=== PATIENT | male | born 1935 | race Caucasian/White ===

== ENCOUNTER 2024-12-12 09:42 | Outpatient (OUT) | payer OTHER, SELFPAY ==
--- OUTSIDE RECORDS SUMMARY | 2023-06-25 07:00 | XMS_ITS ---
Author Organization [facility] Address [address] [address] Care Team Providers Care Activity Manager Name Role Phone Gregg Lopez Primary Care Provider Wilmar Thibodeaux Unavailable [phone] ALLERGIES Allergen (clinical drug ingredient) Drug/Non Drug Allergy documented on EMR Reaction Allergy Type Onset Date Status atorvastatin Lipitor Unknown Drug Allergy Acti ve fenofibrate Tricor Unknown Drug Allergy Activ e REASON FOR VISIT IOV 03/18/08 DUST COLLECTOR OPERATOR 1.5 EGFR 49.5 XIN 06/26/22 CRT1.2 EGFR 55, recent covid,,tired MEDICATIONS Medication SIG (Take, Route, Frequency, Duration) Notes Start Date End Date Status Levothyroxine Sodium 100 MCG 1 tablet on an empty stomach in the morning Orally Once a day for 30 day(s) Active Omeprazole 40 MG 1 capsule 30 minutes before morning meal Orally Once a day Active Nitroglycerin 0.4 MG 1 tablet under the tongue and allow to dissolve as needed Sublingual every 0 hrs Active Lipitor 80 MG 1 tablet Orally Once a day Active Xarelto 20 MG 1 tablet with food Orally Once a day Active Lisinopril 10 MG 1 tablet Orally Once a day Active Ipratropium [place] 0.06 % 2 sprays in e ach nostril Nasally Three times a day for 4 day(s) Active Finasteride 5 MG 1 tablet Orally Once a day for 30 day(s) Active Flax Seed Oil 1300 MG 1 capsule Orally T wice a day Active Doxycycline Hyclate 100 MG 1 capsule Ora lly Once a day for 10 day(s) Active Allopurinol 300 MG 0.5 tablet Orally On ce a day Active Nebivolol HCl 5 MG 1 tablet Orally Once a day for 30 day(s) Active CoQ10 200 MG 1 capsule with a rio l Orally Once a day for 30 day(s) Active Aspirin 81 MG 1 tablet Orally Once a Day Active SOCIAL HISTORY Tobacco Use: Social History Observation Description Date Details (start date - stop date) Never Smoker NA - NA Sex Assigned At : Social History Observation Description Sex Assigned At Unknown Are you a smoker Question Answer Notes Patient is a nonsmoker Additional Findings: Tobacco Non-User Aggressive non-smoker Alcohol Screen Question Answer Notes Did you have a drink contain ing alcohol in the past year? Yes How often did you have a dri nk containing alcohol in the past year? Monthly or less (1 point) How many drinks did you have on a typical day when you were drinking in the past year? 1 or 2 drinks (0 point) Points 1 Interpretation Negative VITAL SIGNS Blood pressure systolic 110 mm Hg 06/25/19 24 Blood pressure diastolic 56 mm Hg 024 Heart Rate 75 /min 06/25/2023 Height 70 in 06/25/2023 Weight 178 lbs 06/25/2023 BMI 25.54 kg/m2 06/25/2023 Encounters Encounter Location Date Provider Diagnosis [facility] [address] [facility] [address] [place] [address] 06/25/2023 Wilmar Rubio Chronic kidney dis ease, stage 3a N18.31 and Hypertensive 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 4 chronic kidney disease, or unspecified chronic kidney disease I12.9 ASSESSMENTS Encounter Date Diagnosis Assessment Notes Treatment Notes Treatment Clinical Notes Section Notes 06/25/2023 Chronic kidney disease, stage 3a (ICD-10 - N18.31) LOW K DIET 1 YEAR FU THYROID MEDS MAY NEED ADJUSTEMENTS DUST COLLECTOR OPERATOR/EGFR/PROTEIN 1.2/54.8/0.0 NA 139 K 5.1 CHL 109 CO2 26 GLUC 84 CANDIDO 8.7 ALB 3.7 PO4 3.6 HGB 10.8 HCT 33.0 TSH 0.05 PTHI 40 MAURO D 57.4 RENAL U/S 06/11/19 R 11.5 L 8.9 CKD 3 A A1 CGN WITH POSSIBLE arvd.no SIGNIFICANT progression, Clinical assessment of today visit revealed; PATIENT SEEN AND EXAMINED LABS AND MEDICATIONS REVIEWED THE FOLLOWING IS OF SIGNIFICANCE FOR TODAY''S VISIT: PATIENT DOESN''T PRESENT WITH ANY COMPLAINTS OR CONCERNS STABLE GFR NO CLINICAL EVIDENCE OF ECFV BLOOD PRESSURE CONTROLLED NO MAJOR ELECTROLYTE OR ACID BASE IMBALANCE K 5.1 NO CLINICALLY SIGNIFICANT PROTEINURIA NO SIGNIFICANT ANEMIA REQUIRING FURTHER WORK UP NO SIGNIFICANT EVIDENCE OF METABOLIC BONE DISORDER SUCH HYPERPHOSPHATEMIA OR HYPERPARATHYROIDISM THE ABOVE DISCUSSED WITH THE PATIENT IN ADDITION TO AVOID ANY NEPHROTOXIC EXPOSURE SUCH CONTRAST DYE, NSAIDS. AVOID FALLING OR BONE BREAKS AVOID PNEMONIA BY BEING UPDATED IN VACCINES CONTACT THE OFFICE WITH ANY CHANGE IN CONDITION OR MEDICATIONS 06/25/2023 Hypertensive 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 4 chronic kidney disease, or unspecified chronic kidney disease (ICD-10 - I12.9) DUST COLLECTOR OPERATOR/EGFR/PROTEIN 1.2/54.8/0.0 NA 139 K 5.1 CHL 109 CO2 26 GLUC 84 CANDIDO 8.7 ALB 3.7 PO4 3.6 HGB 10.8 HCT 33.0 TSH 0.05 PTHI 40 MAURO D 57.4 RENAL U/S 06/11/19 R 11.5 L 8.9 CKD 3 A A1 CGN WITH POSSIBLE arvd.no SIGNIFICANT progression, Clinical assessment of today visit revealed; PATIENT SEEN AND EXAMINED LABS AND MEDICATIONS REVIEWED THE FOLLOWING IS OF SIGNIFICANCE FOR TODAY''S VISIT: PATIENT DOESN''T PRESENT WITH ANY COMPLAINTS OR CONCERNS STABLE GFR NO CLINICAL EVIDENCE OF ECFV BLOOD PRESSURE CONTROLLED NO MAJOR ELECTROLYTE OR ACID BASE IMBALANCE K 5.1 NO CLINICALLY SIGNIFICANT PROTEINURIA NO SIGNIFICANT ANEMIA REQUIRING FURTHER WORK UP NO SIGNIFICANT EVIDENCE OF METABOLIC BONE DISORDER SUCH HYPERPHOSPHATEMIA OR HYPERPARATHYROIDISM THE ABOVE DISCUSSED WITH THE PATIENT IN ADDITION TO AVOID ANY NEPHROTOXIC EXPOSURE SUCH CONTRAST DYE, NSAIDS. AVOID FALLING OR BONE BREAKS AVOID PNEMONIA BY BEING UPDATED IN VACCINES CONTACT THE OFFICE WITH ANY CHANGE IN CONDITION OR MEDICATIONS PLAN OF TREATMENT Treatment Notes Assessment Notes Chronic kidney disease, stage 3a LOW K DIET 1 YEAR FU THYROID MEDS MAY NEED ADJUSTEMENTS Next Appt Details Follow Up: 1 Year, Reason: Provider Name:Wilmar Rubio, 1 06/17/2024 01:00:00 PM, [address], [address], [place], [address], Progress Notes * Examination Category Sub-Category Detail Notes Category Not es General Examination GENERAL APPEARANCE: No distr ess, alert and oriented x 3 NECK/THYROID: no carotid bruit, no jugular venous distention HEART: normal, no rubs, no S3, S1, S2 normal LUNGS: clear anteriorly and posteriorly ABDOMEN: soft, nontender, non distended NEUROLOGIC: alert and oriented, nonfocal, no asterixis SKIN: normal, no rashes, w arm and dry EXTREMITIES: no clubbing, cyanosi s, or edema. No active synovitis BACK: no pain over spinous processes, no CVA tenderness
--- OUTSIDE RECORDS SUMMARY | 2024-06-30 07:30 | XMS_ITS ---
Author Organization [facility] Address [address] [address] Care Team Providers Care Consulting Application Engineer Name Role Phone Gregg Lopez Primary Care Provider Wilmar Thibodeaux Unavailable [phone] ALLERGIES Allergen (clinical drug ingredient) Drug/Non Drug Allergy documented on EMR Reaction Allergy Type Onset Date Status atorvastatin Lipitor Unknown Drug Allergy Acti ve fenofibrate Tricor Unknown Drug Allergy Activ e REASON FOR VISIT IOV 03/18/08 AIRCRAFT ACCESSORIES MECHANIC 1.5EGFR 49.5 XIN 06/25/23 AIRCRAFT ACCESSORIES MECHANIC 1.2 EGFR 54.8, states no med changes no list, c/o being tired MEDICATIONS Medication SIG (Take, Route, Frequency, Duration) Notes Start Date End Date Status Lisinopril 10 MG 1 tablet Orally Once a day Active Nebivolol HCl 5 MG 1 tablet Orally Once a day for 30 day(s) Active Nitroglycerin 0.4 MG 1 tablet under the tongue and allow to dissolve as needed Sublingual every 0 hrs Active Omeprazole 40 MG 1 capsule 30 minutes before morning meal Orally Once a day Active Xarelto 20 MG 1 tablet with food Orally Once a day Active Finasteride 5 MG 1 tablet Orally Once a day for 30 day(s) Active Flax Seed Oil 1300 MG 1 capsule Orally T wice a day Active Ipratropium [place] 0.06 % 2 sprays in e ach nostril Nasally Three times a day for 4 day(s) Active Levothyroxine Sodium 100 MCG 1 tablet on an empty stomach in the morning Orally Once a day for 30 day(s) Active Lipitor 80 MG 1 tablet Orally Once a day Active Allopurinol 300 MG 0.5 tablet Orally On ce a day Active Aspirin 81 MG 1 tablet Orally Once a Day Active CoQ10 200 MG 1 capsule with a rio l Orally Once a day for 30 day(s) Active Doxycycline Hyclate 100 MG 1 capsule Ora lly Once a day for 10 day(s) Active SOCIAL HISTORY Tobacco Use: Social History [...] Interpretation Negative VITAL SIGNS Blood pressure systolic 102 mm Hg 06/30/19 25 Blood pressure diastolic 54 mm Hg 025 Heart Rate 72 /min 06/30/2024 Height 70 in 06/30/2024 Weight 176 lbs 06/30/2024 BMI 25.25 kg/m2 06/30/2024 Encounters Encounter Location Date Provider Diagnosis [facility] [address] [facility] [address] [place] [address] 06/30/2024 Wilmar Rubio Chronic kidney dis ease, stage 3a N18.31 and Hypertensive 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 4 chronic kidney disease, or unspecified chronic kidney disease I12.9 ASSESSMENTS Encounter Date Diagnosis Assessment Notes Treatment Notes Treatment Clinical Notes Section Notes 06/30/2024 Chronic kidney disease, stage 3a (ICD-10 - N18.31) DISCUSSED K WITH LOW K DIET AND NO TO VALENTIN ORO FOR BLOOD DRAW KEEP LISINOPRIL AND SEE PATIENT IN 3 MO AIRCRAFT ACCESSORIES MECHANIC/EGFR/PROTIEN 1.3/53/0.0 NA 139 K 5.2 C02 23 GLUC 96 CA 8.7 ALB 3.8 P04 3.5 HGB 12.0 HCT 36.7 TSH 1.03 MAURO D 50.9 PTH 47 RENAL U/S 06/11/19 R 11.5 L 8.9 [...] MAJOR ELECTROLYTE OR ACID BASE IMBALANCE K 5.2 NO CLINICALLY SIGNIFICANT PROTEINURIA NO SIGNIFICANT ANEMIA REQUIRING FURTHER WORK UP NO SIGNIFICANT EVIDENCE OF METABOLIC BONE DISORDER SUCH HYPERPHOSPHATEMIA OR HYPERPARATHYROIDISM THE ABOVE DISCUSSED WITH THE PATIENT IN ADDITION TO AVOID ANY NEPHROTOXIC EXPOSURE SUCH CONTRAST DYE, NSAIDS. AVOID FALLING OR BONE BREAKS AVOID PNEMONIA BY BEING UPDATED IN VACCINES CONTACT THE OFFICE WITH ANY CHANGE IN CONDITION OR MEDICATIONS 06/30/2024 Hypertensive 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 4 chronic kidney disease, or unspecified chronic kidney disease (ICD-10 - I12.9) AIRCRAFT ACCESSORIES MECHANIC/EGFR/PROTIEN 1.3/53/0.0 NA 139 K 5.2 C02 23 GLUC 96 CA 8.7 ALB 3.8 P04 3.5 HGB 12.0 HCT 36.7 TSH 1.03 MAURO D 50.9 PTH 47 RENAL U/S 06/11/19 R 11.5 L 8.9 [...] MAJOR ELECTROLYTE OR ACID BASE IMBALANCE K 5.2 NO CLINICALLY SIGNIFICANT PROTEINURIA NO SIGNIFICANT ANEMIA [...] Assessment Notes Chronic kidney disease, stage 3a DISCUSSED K WITH LOW K DIET AND NO TO CLENCH FIST FOR BLOOD DRAW KEEP LISINOPRIL AND SEE PATIENT IN 3 MO Next Appt Details Follow Up: 3 Months, Reason: Provider Name:Wilmar Ramiro, 1 06/17/2024 01:00:00 PM, [address], [address], [place], [address], Progress Notes * Examination Category Sub-Category Detail [...]
--- OUTSIDE RECORDS SUMMARY | 2024-09-29 06:30 | XMS_ITS ---
Author Organization [facility] Address [address] [address] Care Team Providers Care Digital Media Specialist Name Role Phone Gregg Lopez Primary Care Provider Wilmar Thibodeaux Unavailable [phone] ALLERGIES Allergen (clinical drug ingredient) Drug/Non Drug Allergy documented on EMR Reaction Allergy Type Onset Date Status atorvastatin Lipitor Unknown Drug Allergy Acti ve fenofibrate Tricor Unknown Drug Allergy Activ e REASON FOR VISIT IOV 03/18/08 PEARL DIVER 1.5 EGFR 49.5 XIN 06/30/24 PEARL DIVER 1.3 EGFR 53, c/o weakness, states no med changes MEDICATIONS Medication SIG (Take, Route, Frequency, Duration) Notes Start Date End Date Status CoQ10 200 MG 1 capsule with a rio l Orally Once a day for 30 day(s) Active Xarelto 20 MG 1 tablet with food Orally Once a day Active Aspirin 81 MG 1 tablet Orally Once a Day Active Doxycycline Hyclate 100 MG 1 capsule Ora lly Once a day for 10 day(s) Active Allopurinol 300 MG 0.5 tablet Orally On ce a day Active Omeprazole 40 MG 1 capsule 30 minutes before morning meal Orally Once a day Active Lisinopril 10 MG 1 tablet Orally Once a day Active Lipitor 80 MG 1 tablet Orally Once a day Active Nitroglycerin 0.4 MG 1 tablet under the tongue and allow to dissolve as needed Sublingual every 0 hrs Active Nebivolol HCl 5 MG 1 tablet Orally Once a day for 30 day(s) Active Finasteride 5 MG 1 tablet Orally Once a day for 30 day(s) Active Ipratropium [place] 0.06 % 2 sprays in e ach nostril Nasally Three times a day for 4 day(s) Active Flax Seed Oil 1300 MG 1 capsule Orally T wice a day Active Levothyroxine Sodium 100 MCG 1 tablet on an empty stomach in the morning Orally Once a day for 30 day(s) Active SOCIAL HISTORY Tobacco Use: Social [...] Interpretation Negative VITAL SIGNS Blood pressure systolic 132 mm Hg 09/30/19 25 Blood pressure diastolic 56 mm Hg 025 Heart Rate 72 /min 09/29/2024 Height 70 in 09/29/2024 Weight 179 lbs 09/29/2024 BMI 25.68 kg/m2 09/29/2024 Encounters Encounter Location Date Provider Diagnosis [facility] [address] [address] 09/29/2024 Wilmar Rubio Chronic kidney dis ease, stage 3a N18.31 and Hypertensive 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 4 chronic kidney disease, or unspecified chronic kidney disease I12.9 ASSESSMENTS Encounter Date Diagnosis Assessment Notes Treatment Notes Treatment Clinical Notes Section Notes 09/29/2024 Chronic kidney disease, stage 3a (ICD-10 - N18.31) MEDS REVIEWED, NO CHANGE. DISCUSSED KIDNEY PRESERVATION, BY AVOIDING NEPHROTOXIC EXPOSURE, AVOID INFECTION, FALLS & PREVENTION OF CARDIOVASCLAR DISEASE, MODERATE MEALS AND REGULAR PA RECOMENDED & DISCUSSED. FOLLOW UP IN 6 MO PEARL DIVER/EGFR/PROTEIN 1.4/49/1.5 NA 139 K 4.7 C02 23 GLUC 99 CA 9.3 P04 4.4 ALB 4.0 HGB 11.4 HCT 34.6 TSH 0.66 PTH 35 RENAL U/S 06/11/19 R 11.5 L 8.9 CKD 3 A A1 CGN WITH POSSIBLE arvd.no SIGNIFICANT progression, Clinical assessment of today visit revealed; PATIENT SEEN AND EXAMINED LABS AND MEDICATIONS REVIEWED THE FOLLOWING IS OF SIGNIFICANCE FOR TODAY''S VISIT: PATIENT DOESN''T PRESENT WITH ANY COMPLAINTS OR CONCERNS STABLE GFR FLUCTUATING NO CLINICAL EVIDENCE OF ECFV BLOOD PRESSURE [...] OFFICE WITH ANY CHANGE IN CONDITION OR MEDICATION 09/29/2024 Hypertensive 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 4 chronic kidney disease, or unspecified chronic kidney disease (ICD-10 - I12.9) PEARL DIVER/EGFR/PROTEIN 1.4/49/1.5 NA 139 K 4.7 C02 23 GLUC 99 CA 9.3 P04 4.4 ALB 4.0 HGB 11.4 HCT 34.6 TSH 0.66 PTH 35 RENAL U/S 06/11/19 R 11.5 L 8.9 CKD 3 A A1 CGN WITH POSSIBLE arvd.no SIGNIFICANT progression, Clinical assessment of today visit revealed; PATIENT SEEN AND EXAMINED LABS AND MEDICATIONS REVIEWED THE FOLLOWING IS OF SIGNIFICANCE FOR TODAY''S VISIT: PATIENT DOESN''T PRESENT WITH ANY COMPLAINTS OR CONCERNS STABLE GFR FLUCTUATING NO CLINICAL EVIDENCE OF ECFV BLOOD PRESSURE [...] OFFICE WITH ANY CHANGE IN CONDITION OR MEDICATION PLAN OF TREATMENT Treatment Notes Assessment Notes Chronic kidney disease, stage 3a MEDS REVIEWED, NO CHANGE. DISCUSSED KIDNEY PRESERVATION, BY AVOIDING NEPHROTOXIC EXPOSURE, AVOID INFECTION, FALLS & PREVENTION OF CARDIOVASCLAR DISEASE, MODERATE MEALS AND REGULAR PA RECOMENDED & DISCUSSED. FOLLOW UP IN 6 MO Future Test Test Name Order Date PTH, Intact 04/01/2025 Renal Function Panel 04/01/2025 CBC 04/01/2025 VITAMIN D,25-[place],LCMSMS 04/01/2025 TSH 04/01/2025 Spot urine Albumin to Creatinine Ratio 1 06/01/2024 Next Appt Details Follow Up: 6 Months, Reason: Provider Name:Wilmar Rubio, 1 06/17/2024 01:00:00 PM, [address], [address], [place], [address], Progress Notes * Examination Category Sub-Category Detail [...]
--- NOTE | 2024-12-12 | XR_ITS ---
[facility] [place] [id number] Patient Name: DRU AYON MRN: [id number] date: 1935 Sex: M Assigned Patient Location: [facility] Current Patient Location: [facility] Accession/Order Number: [id number] Exam Date: 12/12/2024 10:46 Report Date: 12/12/2024 10:47 At the request of: ABDULLAHI HAWK Procedure: XR chest 2V Chest 2 views CLINICAL HISTORY: WEIGHT LOSS R63.4 CHRONIC COUGH R05.3 COMPARISON: None FINDINGS: Pacemaker device in place. Postsurgical changes are seen projecting over the left hilar region. Cardiomegaly is noted. Elevation left hemidiaphragm. No consolidation pneumothorax pleural effusion or free air. XR/XR chest 2V IMPRESSION: NO ACUTE CARDIOPULMONARY ABNORMALITY. Impression dictated by: Lorne Quinn Jr., D.O. 12/12/2024 10:47 AM Dictation Location: [place] [address] Electronically authenticated by: [id number] Y Date: 12/12/2024 10:47
--- OUTSIDE RECORDS SUMMARY | 2024-12-12 08:30 | XMS_ITS | Encounter Summary ---
Author Organization [facility] Address [address] [place] [address] Care Team Providers Care Artist Agent Name Role Phone Gregg Lopez MD Primary Care Provider [phone] Gregg Lopez MD Unavailable [phone] Neelima Rush LPN Unavailable Reason for Referral * Consultation (Routine) - Pending Review Specialty Diagnoses / Procedures Referred By Alvarado t Referred To Contact Otolaryngology Diagnoses Dysphagia, unspecified type Hoarseness of voice Procedures MI OFFICE/OUTPATIENT NEW HIGH MDM 60 MINUTES Gregg Lopez MD 112 [facility] [address] [place] [address] Phone: tel: fax: Bg Ruvalcaba, DO [address] [place] [address] Phone: tel: fax: Referral ID Status Reason Start Date Expiration Date Visits Requested Visits Authorized [id number] Pending Review Specialty Services Required 12/12/2024 06/10/2025 1 1 Reason for Visit * Reason Comments Dizziness Pt is wondering if l evothyroxine or nebivolol are causing the dizziness discuss new referral to derm Pt would li ke referral to see dr melendez for opinion on skin lesion on face Weight Loss Pt was drinking carn ation breakfast he stopped, noticed he was losing weight so he restarted again 2 weeks ago Dysphagia Wondering if he need s referral to have his esophagus stretched Encounter Details Date Type Department Care Team (Late st Contact Info) Description 12/12/2024 8:30 AM EDT Office Visit [facility] [address] [facility] [address] [place] [address] Gregg Lopez MD 112 [facility] [address] [place] [address] Acquired hypothyroidism (Primary Dx); Stage 3a chronic kidney disease (CMS-HCC); Dizziness; Gastroesophageal reflux disease with esophagitis, unspecified whether hemorrhage; Weight loss; Chronic cough; Dysphagia, unspecified type; Hoarseness of voice Social History Tobacco Use Types Packs/Day Years Used Date Smoking Tobacco: Never Smokeless Tobacco: Never Alcohol Use Standard Drinks/Week Comments Never 0 (1 standard drink = 0.6 oz pure alcohol) caffeine 1-2 cups/day; coffee, pop B1300 Health Literacy Answer Date Recor ded How often do you need to hav e someone help you when you read instructions, pamphlets, or other written material from your doctor or pharmacy? Never 02/11/2024 Humiliation, Afraid, Rape, and Kick questionnair e Answer Date Recorded Within the last year, have y ou been afraid of your partner or ex-partner? No 04/25/2023 Within the last year, have y ou been humiliated or emotionally abused in other ways by your partner or ex-partner? No Within the last year, have y ou been kicked, hit, slapped, or otherwise physically hurt by your partner or ex-partner? No 04/25/2023 Within the last year, have y ou been raped or forced to have any kind of sexual activity by your partner or ex-partner? No 04/25/2023 Social Connection and Isolat ion Panel [NHANES] Answer Date Recorded In a typical week, how many times do you talk on the phone with family, friends, or neighbors? More than three times a week 04/25/2023 How often do you get togethe r with friends or relatives? More than three times a week 04/25/2023 How often do you attend chur ch or scientologist services? 1 to 4 times per year 04/25/2023 Do you belong to any clubs o r organizations such as baptism groups, unions, fraternal or athletic groups, or school groups? No 04/25/2023 How often do you attend meet ings of the clubs or organizations you belong to? Never 04/25/2023 Are you , , di vorced, , never , or living with a partner? 04/25/2023 AUDIT-C Answer Date Recorded Q1: How often do you have a drink containing alcohol? Never 04/25/2023 Q2: How many drinks containi ng alcohol do you have on a typical day when you are drinking? Patient does not drink Q3: How often do you have si x or more drinks on one occasion? Never 04/25/2023 Overall Financial Resource Strain (CARDIA) Answe r Date Recorded How hard is it for you to pa y for the very basics like food, housing, medical care, and heating? Not hard at all 04/25/2023 PHQ-2 Answer Date Recorded Patient Health Questionnaire-2 Score 0 12/12/2024 [facility] - Occupational Stress Questionnaire Answer Date Recorded Do you feel stress - tense, restless, nervous, or anxious, or unable to sleep at night because your mind is troubled all the time - these days? Only a little 04/25/2023 Exercise Vital Sign Answer Date Recorde d On average, how many days pe r week do you engage in moderate to strenuous exercise (like a brisk walk)? 7 days 04/25/2023 On average, how many minutes do you engage in exercise at this level? 10 min 04/25/2023 Hunger Vital Sign Answer Date Recorded Within the past 12 months, y ou worried that your food would run out before you got the money to buy more. Never true 04/25/20 23 Within the past 12 months, t he food you bought just didn't last and you didn't have money to get more. Never true 04/25/2023 PRAPARE - Transportation Answer Date Re corded In the past 12 months, has l ack of transportation kept you from medical appointments or from getting medications? No 04/13 In the past 12 months, has l ack of transportation kept you from meetings, work, or from getting things needed for daily living? No 04/25/2023 Housing Stability Vital Sign Answer Azael e Recorded In the last 12 months, was t here a time when you were not able to pay the mortgage or rent on time? No 04/25/2023 In the last 12 months, how many places have you lived? 1 04/25/2023 In the last 12 months, was t here a time when you did not have a steady place to sleep or slept in a intermediate (including now)? No 04/25/2023 Sex and Gender Information Value Date Recorded Sex Assigned at Not on file Legal Sex Male 6:36 PM EDT Gender Identity Not on file Sexual Orientation Not on file documented as of this encounter Last Filed Vital Signs Vital Sign Reading Time Taken Comments Blood Pressure 98/58 12/12/2024 8:21 AM EDT Pulse 66 12/12/2024 8:21 AM EDT Temperature - - Respiratory Rate - - Oxygen Saturation 96% 12/12/2024 8:21 AM EDT Inhaled Oxygen Concentration - - Weight 76.2 kg (168 lb) 12/12/2024 8:21 AM EDT Height 172.7 cm (5' 8 ) 12/12/2024 8:21 AM EDT Body Mass Index 25.54 12/12/2024 8:21 AM EDT documented in this encounter Functional Status * Over the past 2 weeks, how often have you been bothered by any of the following problems? Question Answer Date of Assessment Author Little interest or pleasure in doing things Not at all 12/12/2024 8:22 AM EDT Lisa Chaudhari LP N Feeling down, depressed, or hopeless Not at all 12/12/2024 8:22 AM EDT Lisa Chaudhari LP N Patient Health Questionnaire -2 Score 0 12/12/2024 8:22 AM EDT Lisa Chaudhari LP N documented as of this encounter Progress Notes * Gregg Lopez MD - 12/12/2024 8:30 AM EDT Images from the original note were not included. HPI Dizziness Additional comments: Pt is wondering if levothyroxine or nebivolol are causing the dizziness discuss new referral to derm Additional comments: Pt would like referral to see dr melendez for opinion on skin lesion on face Weight Loss Additional comments: Pt was drinking carnation breakfast he stopped, noticed he was losing weight so he restarted again 2 weeks ago Dysphagia Additional comments: Wondering if he needs referral to have his esophagus stretched Last edited by Lisa Chaudhari LPN on 12/12/2024 8:42 AM. Subjective Patient ID: Aaron Blanton is a 89 y.o. male who presents for Dizziness (Pt is wondering if levothyroxine or nebivolol are causing the dizziness), discuss new referral to derm (Pt would like referral to see dr melendez for opinion on skin lesion on face), Weight Loss (Pt was drinking carnation breakfast he stopped, noticed he was losing weight so he restarted again 2 weeks ago), and Dysphagia (Wondering if he needs referral to have his esophagus stretched). Pt states he has seen ENT dr ruvalcaba in past and he stretched his esophagus he thinks maybe this needs done again because he is having some dysphagia when eating solid food Saw derm in past but would like new referral to dr melendez for opinion on treatment options Has had weight loss but has restarted carnation breakfast Dizziness Dysphagia Over the past 2 weeks, how often have you been bothered by any of the following problems? Little interest or pleasure in doing things: Not at all Feeling down, depressed, or hopeless: Not at all Patient Health Questionnaire-2 Score: 0 Current Outpatient Medications on File Prior to Visit Medication Sig Dispense Refill allopurinol (Zyloprim) 300 MG tablet Take 0.5 tablets (150 mg) by mouth Daily 45 tablet 3 aspirin 81 MG EC tablet Take 81 mg by mouth Daily atorvastatin (Lipitor) 80 MG tablet Take 1 tablet (80 mg) by mouth Daily 100 tablet 2 coenzyme Q-10 200 MG capsule 1 capsule 1 (one) time each day at the same time Flaxseed, Linseed, (Flaxseed Oil) 1000 MG capsule Daily hydrocortisone (Proctozone-HC) 2.5 % rectal cream Insert into the rectum 2 (two) times a day 30 g 3 ipratropium (Atrovent) 0.06 % nasal spray Administer 2 sprays into each nostril in the morning and 2 sprays before bedtime. 15 mL 11 levothyroxine (Synthroid, Levoxyl) 100 MCG tablet Take 1 tablet (100 mcg) by mouth in the morning. Take before meals. 90 tablet 3 lisinopril 10 MG tablet Take 1 tablet (10 mg) by mouth Daily 90 tablet 3 meclizine (Antivert) 25 MG tablet Take 1 tablet (25 mg) by mouth every 12 (twelve) hours if needed for dizziness 180 tablet 3 Metamucil Smooth Texture 58.6 % powder Take by mouth Daily nitroglycerin (Nitrostat) 0.[address] 1 tablet (0.4 mg) under the tongue every 5 (five) minutes if needed for chest pain 90 tablet 12 omeprazole (PriLOSEC) [address] capsule Take 1 capsule (40 mg) by mouth in the morning. Take before meals. 90 capsule 3 rivaroxaban (Xarelto) 20 MG tablet Take 1 tablet (20 mg) by mouth in the evening. Take with meals 90 tablet 3 sotalol (Betapace) 80 MG tablet Take 1 tablet (80 mg) by mouth in the morning and 1 tablet (80 mg) before bedtime. 180 tablet 3 triamcinolone (Kenalog) 0.1 % cream 1 application to affected area externally twice a day 50 g 0 [DISCONTINUED] doxycycline (Vibramycin) 100 MG capsule Take 1 capsule (100 mg) by mouth Daily 90 capsule 1 [DISCONTINUED] nebivolol (Bystolic) 5 MG tablet Take 1 tablet (5 mg) by mouth Daily 90 tablet 3 No current facility-administered medications on file prior to visit. I have reviewed and reconciled the history and medication list with the patient today. Allergies Allergen Reactions Atorvastatin Unknown Fenofibrate Unknown Social History Tobacco Use Smoking status: Never Smokeless tobacco: Never Vaping Use Vaping status: Never Used Substance Use Topics Alcohol use: Never Comment: caffeine 1-2 cups/day; coffee, pop Drug use: Defer Family History Problem Relation Name Age of Onset Cancer Mother Hypertension Mother Diabetes Father Hypertension Father Heart disease Father Past Medical History: Diagnosis Date A-fib (HCC) Aneurysm Arthritis Artificial pacemaker Broken ribs 5 CAD (coronary artery disease) Carotid artery disease 2011 Cerebrovascular arteriosclerosis Chronic cholecystitis CKD (chronic kidney disease) stage 3, GFR 30-59 ml/min ([facility]) Coronary atherosclerosis of [place] coronary artery Disorder of vocal cord Diverticulosis 2012 Essential hypertension, benign Family history of prostate problems Glucose intolerance (impaired glucose tolerance) Gout H/O being hospitalized Dizziness/ Orthostatic hypotension/ acute kidney injury ([facility] (05/11/19-05/12/19) Hearing impaired w/ [employer] [facility] hearing aides High risk medication use History of cardiac arrhythmia HTN (hypertension) Hx of echocardiogram 05/30/2017 echo EF 55% Hyperlipidemia Hypothyroid Irregular heartbeat halfway (current) use of anticoagulants Melanoma (HCC) Mitral regurgitation Nasal bone fractures 09/03/2018 OA (osteoarthritis) Pacemaker Paroxysmal atrial fibrillation (HCC) Pneumonia Rosacea S/P coronary angioplasty Shingles Sick sinus syndrome ([facility]) Traumatic tear of thoracic aorta Trigger finger Vocal cord disease Past Surgical History: Procedure Laterality Date CARDIAC CATHETERIZATION 02/08/2022 Atrial Flutter, ASHD CARDIOVERSION 06/24/2019 Atrial Flutter, Sick Sinus Syndrome, Cardioversion CAROTID ENDARTERECTOMY Right 2011 CARPAL TUNNEL RELEASE 2011 CARPAL TUNNEL RELEASE Right 03/13/2018 CORONARY ANGIOPLASTY WITH STENT PLACEMENT 2008 4 stents placed ESOPHAGOSCOPY W/ DILATION 06/22/2021 INSERT / REPLACE / REMOVE PACEMAKER 2006 PROSTATE SURGERY RIB FRACTURE SURGERY 1976 ORIF 5 broken ribs SKIN CANCER EXCISION melanoma SQUAMOUS CELL CARCINOMA EXCISION Left 2013 on left neck TRIGGER FINGER RELEASE 2013 TRIGGER FINGER RELEASE Left 07/05/2020 WRIST SURGERY Left 05/2018 left wrist lesion; actinic keratosis Visit Vitals BP 98/58 Pulse 66 Ht 5' 8 Wt 168 lb SpO2 96% BMI 25.54 kg/m?? Smoking Status Never BSA 1.91 m?? Review of Systems Neurological: Positive for dizziness. Objective Physical Exam Constitutional: General: He is not in acute distress. Appearance: Normal appearance. Cardiovascular: Rate and Rhythm: Normal rate and regular rhythm. Heart sounds: No murmur heard. Pulmonary: Effort: Pulmonary effort is normal. No respiratory distress. Breath sounds: No wheezing, rhonchi or rales. Abdominal: General: Abdomen is flat. Bowel sounds are normal. Palpations: Abdomen is soft. Musculoskeletal: Right lower leg: No edema. Left lower leg: No edema. Neurological: Mental Status: He is alert. Psychiatric: Mood and Affect: Mood normal. Thought Content: Thought content normal. Assessment/Plan Diagnoses and all orders for this visit: Acquired hypothyroidism - TSH; Future - T4, free; Future - T3, free; Future Stage 3a chronic kidney disease (CMS-HCC) - CBC and differential - Comprehensive metabolic panel; Future Dizziness Gastroesophageal reflux disease with esophagitis, unspecified whether hemorrhage Weight loss - TSH; Future - T4, free; Future - T3, free; Future - CBC and differential - Comprehensive metabolic panel; Future - XR chest 2 views; Future - CIB's bid in addition to regular meals. Chronic cough - XR chest 2 views; Future Dysphagia, unspecified type - Ambulatory referral to ENT; Future - May need EGD with dilitation, Has had in the past. Hoarseness of voice - Ambulatory referral to ENT; Future - Chronic, had vocal cord injection in the past Follow up in about 1 week (around 12/19/2024) for Test/Lab Review. documented in this encounter Plan of Treatment Upcoming Encounters Date Type Department Care Team (Late st Contact Info) Description 12/17/2024 10:30 AM EDT Office Visit [facility] [place] [address] [facility] [address] [place] [address] Gregg Lopez MD 112 [facility] [address] [place] [address] 02/16/2025 10:15 AM EDT Office Visit [facility] [place] [address] [facility] [address] [place] [address] Gregg Lopez MD 112 [facility] [address] [place] [address] 03/09/2025 10:50 AM EDT Office Visit [facility] [address] [place] [address] Ivette Michelle APRN-FIELD SEISMOLOGIST [address] [place] [address] 10/09/2025 8:15 AM EDT Office Visit [facility] [address] [place] [address] Eben Ortiz, DO [address] [place] [address] Scheduled Orders Name Type Priority Associated Diagnoses Orde r Schedule TSH Lab Routine Acquired hypothyroidism Weight loss Expected: 12/12/2024 (Approximate), Expires: 12/12/2025 T4, free Lab Routine Acquired hypothyroidism Weight loss Expected: 12/12/2024 (Approximate), Expires: 12/12/2025 T3, free Lab Routine Acquired hypothyroidism Weight loss Expected: 12/12/2024 (Approximate), Expires: 12/12/2025 CBC and differential Lab Routine Stage 3a chronic kidney disease (CMS-HCC) Weight loss Ordered: 12/12/2024 Comprehensive metabolic panel Lab Routine Stage 3a chronic kidney disease (CMS-HCC) Weight loss Expected: 12/12/2024 (Approximate), Expires: 12/12/2025 XR chest 2 views Imaging Routine Weight loss Chronic cough Expected: 12/12/2024, Expires: 12/12/2025 Scheduled Referrals Name Type Priority Associated Diagnoses Orde r Schedule Ambulatory referral to ENT Outpatient Referral Routine Dysphagia, unspecified type Hoarseness of voice Expected: 12/12/2024 (Approximate), Expires: 06/14/2025 documented as of this encounter Visit Diagnoses Diagnosis Acquired hypothyroidism- Primary Unspecified hypothyroidism Stage 3a chronic kidney disease (CMS-HCC) Dizziness Dizziness and giddiness Gastroesophageal reflux disease with esophagitis, unspecified whether hemorrhage Weight loss Loss of weight Chronic cough Cough Dysphagia, unspecified type Hoarseness of voice Dysphonia documented in this encounter Care Teams Artist Agent Relationship Specialty Start Date End Date Gregg Lopez MD 112 [facility] [address] [place] [address] PCP - General Internal Medicine 11/08/22 Gregg Lopez MD [address] [facility] [address] [place] [address] PCP - Devoted 05/14/24 eNelima Rush LPN 112 [facility] [address] [place] [address] 08/01/24 documented as of this encounter
--- OUTSIDE RECORDS SUMMARY | 2024-12-12 09:53 | XMS_ITS | Clinical Summary ---
Author Organization [facility] Healthcare Address [address] [place] [address] Care Team Providers Care Dual Rate Supervisor Name Role Phone Gregg Lopez MD Primary Care Provider [phone] Gregg Lopez MD Unavailable [phone] Neelima Rush LPN Unavailable Allergies Active Allergy Reactions Criticality Noted Date Comments Atorvastatin Unknown 11/05/2022 Fenofibrate Unknown 03/19/2023 Medications Flaxseed, Linseed, (Flaxseed Oil) 1000 MG capsule Daily Acti ve coenzyme Q-10 200 MG capsule 1 capsule 1 (one) time each day at the same time Active aspirin 81 MG EC tablet Take 81 mg by mouth Daily Active Metamucil Smooth Texture 58.6 % powder Take by mouth Daily 023 Active nitroglycerin (Nitrostat) 0.4 MG SL tabletIndications :Atherosclerosis of [place] coronary artery of [place] heart with stable angina pectoris Place 1 tablet (0.4 mg) under the tongue every 5 (five) minutes if needed for chest pain 90 tablet 12 024 Active triamcinolone (Kenalog) 0.1 % creamIndications: Dermatitis 1 application to affected area externally twice a day 50 g 024 Active allopurinol (Zyloprim) 300 MG tabletIndications :Chronic gout without tophus, unspecified cause, unspecified site Take 0.5 tablets (150 mg) by mouth Daily 45 tablet 3 Active levothyroxine (Synthroid, Levoxyl) 100 MCG tabletIndications :Acquired hypothyroidism Take 1 tablet (100 mcg) by mouth in the morning. Take before meals. 90 tablet 3 024 2024 Active omeprazole (PriLOSEC) [address] capsuleIndication s:Gastroesophagea l reflux disease with esophagitis, unspecified whether hemorrhage Take 1 capsule (40 mg) by mouth in the morning. Take before meals. 90 capsule 3 024 2024 Active sotalol (Betapace) 80 MG tabletIndications :Paroxysmal atrial fibrillation (HCC) Take 1 tablet (80 mg) by mouth in the morning and 1 tablet (80 mg) before bedtime. 180 tablet 3 024 2024 Active rivaroxaban (Xarelto) 20 MG tabletIndications :Paroxysmal atrial fibrillation (HCC) Take 1 tablet (20 mg) by mouth in the evening. Take with meals 90 tablet 3 024 2024 Active ipratropium (Atrovent) 0.06 % nasal sprayIndications: Acute non-recurrent sinusitis, unspecified location Administer 2 sprays into each nostril in the morning and 2 sprays before bedtime. 15 mL 11 Active hydrocortisone (Proctozone-HC) 2.5 % rectal creamIndications: External hemorrhoids Insert into the rectum 2 (two) times a day 30 g 3 Active lisinopril 10 MG tabletIndications :Benign essential hypertension Take 1 tablet (10 mg) by mouth Daily 90 tablet 3 025 2025 Active meclizine (Antivert) 25 MG tabletIndications :Benign paroxysmal positional vertigo, unspecified laterality Take 1 tablet (25 mg) by mouth every 12 (twelve) hours if needed for dizziness 180 tablet 3 025 2025 Active atorvastatin (Lipitor) 80 MG tabletIndications :Mixed hyperlipidemia Take 1 tablet (80 mg) by mouth Daily 100 tablet 2 Active atorvastatin (Lipitor) 80 MG tabletIndications :Mixed hyperlipidemia Take 1 tablet (80 mg) by mouth Daily 100 tablet 2 024 2024 Discontinued(R eorder) nebivolol (Bystolic) 5 MG tabletIndications :Benign essential hypertension Take 1 tablet (5 mg) by mouth Daily 90 tablet 3 024 2024 Discontinued doxycycline (Vibramycin) 100 MG capsuleIndication s:History of rosacea Take 1 capsule (100 mg) by mouth Daily 90 capsule 1 025 2024 Discontinued Hospital, Clinic, or Other Facility Administered Medication Ordered Dose Route Frequency Start Date End Date Status betamethasone acetate-betamethasone sodium phosphate (Celestone) injection 3 mgIndications:Trigger finger, right ring finger 3 mg IX Once PRN Procedure 11/18/2024 11/18/2024 Ended betamethasone acetate-betamethasone sodium phosphate (Celestone) injection 6 mgIndications:Primary osteoarthritis of first carpometacarpal joint of left hand 6 mg IX Once PRN Procedure 11/18/2024 11/18/2024 Ended Active Problems Problem Noted Date Diagnosed Date Type 2 diabetes mellitus wit hout complication, without long-term current use of insulin 10/07/2024 Dry eyes 09/11/2023 Blepharitis of upper and lower eyelids of both e yes 09/11/2023 External hemorrhoids 03/01/2023 Vestibular dizziness 11/24/2022 Cervical paraspinal muscle spasm 11/24/2022 Unsteadiness on feet 11/24/2022 At high risk for falls 11/24/2022 Acquired hypothyroidism 11/05/2022 Arthralgia of right temporomandibular joint 10/13 Aspiration into airway 11/05/2022 Arteriosclerosis obliterans 11/05/2022 Atherosclerosis of artery of both lower extremit ies 11/05/2022 Atherosclerosis of [place] co ronary artery of [place] heart with stable angina pectoris 11/05/2022 Atrial flutter 11/05/2022 Benign essential hypertension 11/05/2022 Benign paroxysmal positional vertigo 11/05/2022 Bilateral hearing loss 11/05/2022 Cardiac pacemaker in situ 11/05/2022 Carpal tunnel syndrome of right wrist 11/05/2022 Cervical spondylosis without myelopathy 06/25/20 23 Osteoarthritis of spine with radiculopathy, cerv ical region 11/05/2022 Chronic gouty arthritis 11/05/2022 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 11/05/2022 Constipation 11/05/2022 Degenerative disease of central nervous system 0 11/05/2022 Disease of spinal cord, unspecified 11/05/2022 Depressive disorder 11/05/2022 Dizziness 11/05/2022 Dysphagia 11/05/2022 Esophageal stenosis 11/05/2022 Gastroesophageal reflux disease 11/05/2022 Ganglion of hand 11/05/2022 Gout 11/05/2022 Hemorrhage of colon due to diverticulosis 2022 Hoarseness 11/05/2022 Internal hemorrhoids 11/05/2022 Localized, primary osteoarthritis of hand 2022 Lumbosacral spondylosis without myelopathy 11/05 Mixed hyperlipidemia 11/05/2022 Paroxysmal atrial fibrillation 11/05/2022 Permanent atrial fibrillation 11/05/2022 Cerebrovascular disease 11/05/2022 Peripheral vascular disease 11/05/2022 Primary osteoarthritis, right shoulder Rotator cuff arthropathy of right shoulder 11/05 Referred otalgia of right ear 11/05/2022 Sensorineural hearing loss, bilateral 11/05/2022 Sick sinus syndrome 11/05/2022 Tinnitus 11/05/2022 Uses hearing aid 11/05/2022 Vitamin D deficiency 11/05/2022 Vocal cord paralysis 11/05/2022 Hearing loss 06/03/2020 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 History of airway aspiration 03/07/2017 History of atrial fibrillation 05/04/2016 Cystic basal cell carcinoma 06/17/2015 Sweat gland cyst 06/17/2015 Vitreous degeneration 03/09/2014 Resolved Problems Problem Noted Date Diagnosed Date Resolved Date Atherosclerosis of artery 11/05/2022 Hypertensive 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 4 chronic kidney disease, or unspecified chronic kidney disease 11/05/2022 07/11/2023 Stage 3a chronic kidney disease 11/05/2022 07/11/2023 Type 2 diabetes mellitus wit hout complications 11/05/2022 07/11/2023 Senile cataract 12/01/2011 09/11/2023 Encounters Date Type Department Care Team Description 12/12/2024 8:30 AM EDT [facility] [address] [facility] [address] [place] [address] Gregg Lopez MD Acquired hypothyroidism (Primary Dx); Stage 3a chronic kidney disease ([facility]); Dizziness; Gastroesophageal reflux disease with esophagitis, unspecified whether hemorrhage; Weight loss; Chronic cough; Dysphagia, unspecified type; Hoarseness of voice 12/12/2024 Bamboo flowsheet [facility] [place] [facility] [address] [facility] [address] [place] [address] Gregg Lopez MD 12/12/2024 Travel 12/10/2024 [facility] [address] [place] [address] Neelima Rush LPN 12/05/2024 Refill [facility] [place] [address] [place] [address] Serena Ferrari MA Mixed hyperlipidemia 11/18/2024 8:45 AM EDT Office Visit [facility] [address] [place] [address] Dinh Rodriguez PA Bilateral hand pain (Primary Dx); Trigger finger, right ring finger; Primary osteoarthritis of first carpometacarpal joint of left hand 11/18/2024 8:05 AM EDT Ancillary Procedure [facility] [address] [place] [address] 11/18/2024 8:00 AM EDT Ancillary Procedure [facility] [address] [place] [address] 11/18/2024 Travel 11/11/2024 Abstract [facility] [place] [address] [place] [address] Gregg Lopez MD 11/10/2024 [facility] [address] [place] [address] Neelima Rush LPN 10/15/2024 Results Follow-Up [facility] [address] [place] [address] Ирина Lorenzo MD 10/09/2024 1:00 PM EDT Office Visit [facility] [place] [facility] [address] [place] [address] Ivette Michelle, FRINGE WEAVER-SOCIAL SERVICE MANAGER Non-healing skin lesion; Neoplasm of unspecified behavior of bone, soft tissue, and skin 10/09/2024 Bamboo flowsheet [facility] [place] [facility] [address] [place] [address] Ivette Michelle APRN-SOCIAL SERVICE MANAGER 10/09/2024 Travel 10/08/2024 10:30 AM EDT Office Visit [facility] [place] [facility] [address] [facility] [address] [place] [phone] Gregg Lopez MD Benign essential hypertension (Primary Dx); Mixed hyperlipidemia ; Chronic kidney disease, stage 2 (mild); Paroxysmal atrial fibrillation (HCC); Atherosclerosis of [place] coronary artery of [place] heart without angina pectoris ; IGT (impaired glucose tolerance); Non-healing skin lesion 10/08/2024 Travel 10/07/2024 2:30 PM EDT Office Visit [facility] [address] [place] [phone] Eben Ortiz, Type 2 diabetes mellitus without complication, without long-term current use of insulin (HCC) (Primary Dx); Dry eyes; Blepharitis of upper and lower eyelids of both eyes, unspecified type 10/07/2024 Bamboo flowsheet [facility] [address] [place] [address] Eben Ortiz DO 10/07/2024 Travel 09/29/2024 Abstract [facility] [place] [address] [place] [address] Gregg Lopez MD 09/24/2024 Abstract [facility] [address] [facility] [address] [place] [address] Gregg Lopez MD 09/22/2024 Abstract [facility] [address] [place] [address] Gregg Lopez MD 09/22/2024 Abstract [facility] [address] [place] [phone] Gregg Lopez MD from Last 3 Months Immunizations Immunization Administration Dates Next Due Influenza, High Dose Seasona l, Preservative Free 02/25/2024,03/24/2021,02/05/2020,02/24,02/05/2018,01/30/2018,01/30/2017 ,02/16/2016 Influenza, High-dose Seasona l, Quadrivalent, Preservative Free 03/01/2023,02/27/2019 Influenza, Seasonal, Quadriv alent, Adjuvanted 02/28/2022 Influenza, injectable, quadrivalent 02/21/2016 Influenza, injectable, quadr ivalent, preservative free 10/16/2017 Influenza, seasonal, injectable 02/14/2020,03/27 Influenza, seasonal, injecta ble, preservative free 01/11/2015 Influenza, seasonal, intrade rmal, preservative free 03/11/2014 Pfizer Purple Cap SARS-CoV-2 Vaccination 07/08/2020 Pneumococcal Conjugate PCV 13 01/27/2019 Pneumococcal Conjugate PCV 20 01/24/2022 Pneumococcal Polysaccharide PPSV23 01/30,03/27/2016,06/14/2015,02/11,05/14/2011,01/12/2010 RSV, recombinant, protein patel bunit RSVpreF, adjuvant reconstitu, 120mcg/0.5mL, PF (Arexvy) 06/17/2024 Zoster, live 01/22/2014,08/15/2013 Family History Medical History Relation Name Comments Diabetes Father Heart disease Father Hypertension Father Cancer Mother Hypertension Mother Relation Name Status Comments Father Mother Social History Tobacco Use Types Packs/Day Years Used Date Smoking Tobacco: Never Smokeless Tobacco: Never Tobacco Cessation:Counseling Given: Not Answered Alcohol Use Standard Drinks/Week Comments Never 0 [...] 04/25/2023 How often do you attend chur or holiness services? 1 to 4 times per year 04/25/2023 Do you belong to any clubs o r organizations such as latter-day groups, unions, fraternal or athletic groups, or [...] Recorded Patient Health Questionnaire-2 Score 0 12/12/2024 [facility] - Occupational Stress [...] place to sleep or slept in a fci (including now)? No 04/25/2023 Sex and Gender Information Value Date Recorded Sex Assigned at Not on file Legal Sex Male 6:36 PM EDT Gender Identity Not on file Sexual Orientation Not on file Last Filed Vital Signs Vital Sign Reading Time Taken Comments Blood Pressure 98/58 12/12/2024 8:21 AM EDT Pulse 66 12/12/2024 8:21 AM EDT Temperature 36.3 C (97.3 F) 07/25/2023 8:58 AM EDT Respiratory Rate - - Oxygen Saturation 96% 12/12/2024 8:21 AM EDT Inhaled Oxygen Concentration - - Weight 76.2 kg (168 lb) 12/12/2024 8:21 AM EDT Height 172.7 cm (5' 8 ) 12/12/2024 8:21 AM EDT Body Mass Index 25.54 12/12/2024 8:21 AM EDT Plan of Treatment Upcoming Encounters Date Type Department Care Team (Late st Contact Info) Description 12/17/2024 10:30 AM EDT Office Visit [facility] [place] [facility] [address] [facility] [address] [place] [phone] Gregg Lopez MD [address] [facility] [address] [place] [address] 02/16/2025 10:15 AM EDT [facility] [place] [facility] [address] [facility] [address] [facility] [address] [place] [address] Gregg Lopez MD [address] [facility] [address] [place] [address] 03/09/2025 10:50 AM EDT Office Visit [facility] [place] [facility] [address] [place] [phone] Ivette Michelle, FRINGE WEAVER-SOCIAL SERVICE MANAGER [address] [place] [address] 10/09/2025 8:15 AM EDT Office Visit [facility] [address] [place] [phone] Eben Ortiz, [address] [place] [address] Health Maintenance Due Date Last Done Comments Skin Cancer Screening 1936 Diabetes: Hemoglobin A1C 01/08/2025 025, 01/09/2024, 05/27/2021, Additional history exists Influenza Vaccine (#1) 2025 , 03/01/2023, 02/28/2022, Additional history exists Medicare Annual Wellness (AWV) 06/11/2025 0 06/11/2024, 03/01/2023, 01/23/2022 Diabetes: Urine Protein Screening 09/22/2025 025, 01/20/2021 Diabetes: Retinopathy Screening 10/07/2026 10/07/2024, 10/07/2024, 10/07/2024, Additional history exists Pneumococcal Vaccine: 65+ Years Completed 01/24/2022, 01/30/2019, 01/27/2019, Additional history exists Procedures Procedure Name Priority Date/Time Associated Diagnosis Comments TN ARTHROCNT ASPIR&/INJ SMALL JT/BURSAW/US REC RPRT Routine 11/18/2024 9:29 AM EDT Primary osteoarthritis of first carpometacarpal joint of left hand CHG US GUIDANCE NEEDLE PLACEMENT IMG S&I Routine 11/18/2024 9:29 AM EDT Trigger finger, right ring finger TN INJECTION 1 TENDON SHEATH/LIGAMENT APONEUROSIS Routine 11/18/2024 9:29 AM EDT Trigger finger, right ring finger XR HAND 3+ VIEWS LEFT Routine 11/18/2024 7:43 AM EDT Bilateral hand pain XR HAND 3+ VIEWS RIGHT Routine 7:43 AM EDT Bilateral hand pain SKIN / NAIL BIOPSY Routine 10/09/2024 1: 02 PM EDT Neoplasm of unspecified behavior of bone, soft tissue, and skin DERMATOPATHOLOGY EXAM Routine 10/09/2024 12:00 AM EDT Neoplasm of unspecified behavior of bone, soft tissue, and skin POCT GLYCATED HEMOGLOBIN, TOTAL Routine 10/08/2024 11:20 AM EDT IGT (impaired glucose tolerance) MICROALBUMIN / CREATININE URINE RATIO Routine 09/22/2024 BASIC METABOLIC PANEL Routine 09/22/2024 COLOR FUNDUS PHOTOGRAPHY - OU - BOTH EYES Routine 07/30/2017 12:00 PM EDT from Last 3 Months or Most Recently Relevant to Health Maintenance Results * TN ARTHROCNT ASPIR&/INJ SMALL JT/BURSAW/US REC RPRT (11/18/2024 9:29 AM EDT) Maeve Cervantes MA - 11/18/2024 9:29 AM EDT Maeve Mota MA 11/18/2024 12:09 PM S Inj/Asp: L thumb CMC on 11/18/2024 9:29 AM Indications: pain Details: 25 G needle, ultrasound-guided Medications: 6 mg betamethasone acetate-betamethasone sodium phosphate 6 (3-3) MG/ML Procedure, treatment alternatives, risks and benefits explained, specific risks discussed. Consent was given by the patient. Immediately prior to procedure a time out was called to verify the correct patient, procedure, equipment, functional support analyst and site/side marked as required. Patient was prepped and draped in the usual sterile fashion. us Dinh [facility] IN [facility]IC/BEDSIDE ORDERABLES Fin al Result * TN INJECTION 1 TENDON SHEATH/LIGAMENT APONEUROSIS, CHG US GUIDANCE NEEDLE PLACEMENT IMG S&I (11/18/2024 9:29 AM EDT) Maeve Cervantes MA - 11/18/2024 9:29 AM EDT Maeve Mota MA 11/18/2024 12:09 PM Hand / UE Inj/Asp: R ring A1 for trigger finger on 11/18/2024 9:29 AM Indications: pain Details: 25 G needle, ultrasound-guided Medications: 3 mg betamethasone acetate-betamethasone sodium phosphate 6 (3-3) MG/ML Procedure, treatment alternatives, risks and benefits explained, specific risks discussed. Consent was given by the patient. Immediately prior to procedure a time out was called to verify the correct patient, procedure, equipment, functional support analyst and site/side marked as required. Patient was prepped and draped in the usual sterile fashion. us Dinh [facility]/BEDSIDE ORDERABLES [facility] al Result * XR hand 3+ views right (11/18/2024 7:43 AM EDT) Anatomical Region Laterality Modality Upper Extremities, Hand Right Radiogra phic Imaging Narrative 11/18/2024 12:00 PM EDT Imaging Result: Bilateral hands AP lateral and oblique of the right hand taken in the office today demonstrating mild arthritis of the wrist itself but no significant arthritis of the base of the thumb. His left wrist showing mild arthritis as well but more prominently [id number] changes to the CMC joint. No acute fracture bony tumor seen. us Dinh [facility] IMG XR PROCEDURES Final Result * XR hand 3+ views left (11/18/2024 7:43 AM EDT) Anatomical Region Laterality Modality Upper Extremities, Hand Left Radiogra phic Imaging Narrative 11/18/2024 12:01 PM EDT Imaging Result: Bilateral hands AP lateral and oblique of the right hand taken in the office today demonstrating mild arthritis of the wrist itself but no significant arthritis of the base of the thumb. His left wrist showing mild arthritis as well but more prominently [id number] changes to the CMC joint. No acute fracture bony tumor seen. us Dinh [facility] IMG XR PROCEDURES Final Result * Lesion biopsy (10/09/2024 1:02 PM EDT) Narrative Rose Marie Snyder MA - 10/09/2024 1:02 PM EDT Type of biopsy: tangential Informed consent: discussed and consent obtained Informed consent comment: The risks and benefits of the biopsy were discussed. Risks include but are not limited to bleeding, infection, scarring, pain, and nerve damage. An opportunity to ask questions prior to the procedure was permitted and all questions were answered. Patient was prepped and draped in usual sterile fashion: area cleansed with alcohol. Anesthesia: the lesion was anesthetized in a standard fashion Anesthetic: 1% lidocaine w/ epinephrine 1-100,000 buffered w/ 8.4% NaHCO3 Instrument used: DermaBlade Hemostasis achieved with: electrodesiccation Outcome: patient tolerated procedure well Outcome comment: The specimen was placed in a prelabeled formalin container to be sent for pathology Post-procedure details: sterile dressing applied and wound care instructions given Post-procedure details comment: Emphasized need to contact clinic for any signs of infection, uncontrollable bleeding, or complications. Dressing type: bandage Additional details: Photo taken yes Amount of lidocaine used: 0.5 cc Ivette Michelle APRN-SOCIAL SERVICE MANAGER DERM PROCEDURE ORDERAB LES Final Result * Dermatopathology exam (10/09/2024 12:00 AM EDT) SPECIMEN TYPE SPECIMEN: RIGHT ZYGOMA AREA [facility] ICD10 Code C44.329 [facility] PROTOCOL F - FLAT [facility] Final Diagnosis SQUAMOUS CELL CARCINOMA. COMMENT: The configuration suggests that this likely represents the superficial aspect of an invasive tumor. [facility] Gross Text [facility] Microscopic Description Microscopic examination performed. [facility] CPT 33292*1 [facility] Skin Topography unknown / Unknown 10/09/2024 1:02 PM EDT Comment:Differential Diagnos is: AK vs. BCC vs. SCC Check Margins: No Size of lesion: Ivette Michelle APRN-SOCIAL SERVICE MANAGER LAB PATHOLOGY ORDERABL ES Final Result [facility] * POCT Glycated hemoglobin, total (10/08/2024 11:20 AM EDT) Hemoglobin A1C 5.6 Blood 10/08/2024 11:2 0 AM EDT us Gregg Lopez MD POINT OF CARE TEST ENTER/EDIT ORDERABLES Final Result * Microalbumin / creatinine urine ratio (09/22/2024) MICROALBUMIN, URINE 4.5 ALB/CREAT RATIO 6.5 URINE CREAT 69.4 Urine Urine specimen obtained by clean catch procedure / Unknown 09/22/2024 us Gregg Lopez MD LAB URINE ORDERABLES Final Res ult * (ABNORMAL) Basic metabolic panel (09/22/2024) [facility] Glucose 99 65 - 99 mg/dL Creatinine 1.4(A) 0.6 - 1.3 mg/dL EGFR 49 BUN/Creat Ratio 31 Blood Venous blood specimen / Unknown 09/22/2024 us Gregg Lopez MD LAB BLOOD ORDERABLES Final Res ult * Color Fundus Photography - OU - Both Eyes (07/30/2017 12:00 PM EDT) Anatomical Region Laterality Modality Head Fundus Photograp hy 07/30/2017 12:0 0 PM EDT Narrative 07/30/2017 12:00 PM EDT PERFORMED AT [facility] LOCATION:[id number] No retinopathy Procedure Note CONVERSION, GENERIC - 09/27/2022 PERFORMED AT [facility] LOCATION:[id number] No retinopathy us Gregg Lopez MD OPHTH PHOTOGRAPHY Final Result from Last 3 Months or Most Recently Relevant to Health Maintenance Insurance [employer] Care Teams Dual Rate Supervisor Relationship Specialty Start Date End Date Gregg Lopez MD [address] [address] PCP - General Internal Medicine 11/08/22 Gregg Lopez MD [address] [facility] [address] [place] [address] PCP - Devoted 05/14/24 Neelima Rush LPN [address] [address] 08/01/24
--- OUTSIDE RECORDS SUMMARY | 2024-12-12 09:53 | XMS_ITS | Encounter Summary ---
Author Organization [facility] Address [address] [place] [address] Care Team Providers Care Podiatry Doctor Name Role Phone Gregg Lopez MD Primary Care Provider [phone] Gregg Lopez MD Unavailable [phone] Neelima Rush LPN Unavailable Encounter Details Date Type Department Care Team (Late st Contact Info) Description 11/11/2024 Abstract [facility] [place] [facility] 112 [facility] 110 [place] [address] Gregg Lopez MD 112 [facility] 110 [place], [place] [address] Social History Tobacco Use Types Packs/Day Years [...] How often do you attend chur or jain services? 1 to 4 times per year 04/25/2023 Do you belong to any clubs o r organizations such as muslim groups, unions, fraternal or athletic groups, or [...] Date Recorded Patient Health Questionnaire-2 Score 0 10/08/2024 [facility] [place] [place] of Occupat ional Health - Occupational Stress [...] place to sleep or slept in a fpc (including now)? No 04/25/2023 Sex and Gender Information Value Date Recorded Sex Assigned at Not on file Legal Sex Male 6:36 PM EDT Gender Identity Not on file Sexual Orientation Not on file documented as of this encounter Plan of Treatment Upcoming Encounters Date Type Department Care Team (Late st Contact Info) Description 12/17/2024 10:30 AM EDT Office Visit [facility] [place] [facility] [address] [facility] 110 [place] [address] Gregg Lopez MD [address] [facility] 110 [place] [address] 02/16/2025 10:15 AM EDT Office Visit [facility] [place] [facility] [address] [place] [address] [place] [address] Gregg Lopez MD [address] [place] 110 [place] [address] 03/09/2025 10:50 AM EDT Office Visit [facility] [place] [facility] [address] [place] [address] [place] [address] Ivette Michelle, SUB ARC OPERATOR-TELE MARKETING EXECUTIVE [address] [place] [address] [place], [place] [address] 10/09/2025 8:15 AM EDT [facility] [address] [place] [address] [place] [address] Eben Ortiz, DO [address] [place] [address] documented as of this encounter Visit Diagnoses Not on filedocumented in this encounter Care Teams Podiatry Doctor Relationship Specialty Start Date End Date Gregg Lopez MD [address] [place] [address] [place] [address] PCP - General Internal Medicine 11/08/22 Gregg Lopez MD [address] [place] [address] [place] [address] PCP - Devoted 05/14/24 Neelima Rush LPN [address] [place] [address] [place] [address] 08/01/24 documented as of this encounter
--- OUTSIDE RECORDS SUMMARY | 2024-12-12 09:54 | XMS_ITS | Encounter Summary ---
Author Organization [facility] Address [address] [place] [address] Care Team Providers Care Ground Operations Supervisor Name Role Phone Gregg Lopez MD Unavailable [phone] Gregg Lopez MD Primary Care Provider Gregg Lopez MD Unavailable [phone] Serena Huertas RN Unavailable [phone] Gregg Lopez MD Unavailable [phone] Neelima Rush LPN Unavailable Encounter Details Date Type Department Care Team (Late st Contact Info) Description 06/20/2023 Orders Only [facility] [place] [facility] [address] [place] [address] [place] [address] Unallocated, [facility] MD [place] [address] [place], [place] [address] Social History Tobacco Use Types Packs/Day Years Used Date Smoking Tobacco: Never Smokeless Tobacco: Never Alcohol Use Standard Drinks/Week Comments Never 0 (1 standard drink = 0.6 oz pure alcohol) caffeine 1-2 cups/day; coffee, pop Humiliation, Afraid, Rape, and Kick questionnair e [...] How often do you attend chur or moravian services? 1 to 4 times per year 04/25/2023 Do you belong to any clubs o r organizations such as anabaptism groups, unions, fraternal or athletic groups, or [...] and heating? Not hard at all 04/25/2023 [facility] [place] of Occupat ional Health - Occupational Stress [...] place to sleep or slept in a mcfp (including now)? No 04/25/2023 Sex and Gender Information Value Date Recorded Sex Assigned at Not on file Legal Sex Male 6:36 PM EDT Gender Identity Not on file Sexual Orientation Not on file documented as of this encounter Plan of Treatment Upcoming Encounters Date Type Department Care Team (Late st Contact Info) Description 12/17/2024 10:30 AM EDT Office Visit [facility] [place] [facility] [address] [facility] 110 [place] [address] Gregg Lopez MD [address] [facility] 110 [place] [address] 02/16/2025 10:15 AM EDT Office Visit [facility] [place] [facility] [address] [facility] 110 [place] [address] Gregg Lopez MD [address] [place] [address] [place] [address] 03/09/2025 10:50 AM EDT Office Visit [facility] [place] [facility] [address] [place] [place] [address] Ivette Michelle, QA LEAD-SWITCH INSPECTOR [address] [place] [address] [place] [address] 10/09/2025 8:15 AM EDT Office Visit [facility] [address] [place] [place] [address] Eben Ortiz, [address] [place] [address] documented as of this encounter Procedures Procedure Name Priority Date/Time Associated Diagnosis Comments SCANNED LABS Routine 06/18/2023 1:19 PM EST documented in this encounter Results * SCANNED LABS (06/18/2023 1:19 PM EST) us Noms Provider Unallocated LAB CHG PERFORMABLE S Final Result documented in this encounter Visit Diagnoses Not on filedocumented in this encounter Care Teams Ground Operations Supervisor Relationship Specialty Start Date End Date Gregg Lopez MD [address] [place] [address] [place] [address] PCP - ACO Reach 10/05/22 06/19/24 Gregg Lopez MD [address] [place] [address] [place] [address] PCP - General Internal Medicine 11/08/22 Gregg Lopez MD [address] [place] [address] [place] [address] PCP - Devoted 05/14/24 Gregg Lopez MD [address] [place] [address] [place] [address] PCP - ACO Reach 06/27/24 08/14/24 Serena Huertas, [place]ID [address] [place], [place] [id number] Clinical Advocate Family Medicine 06/20/24 08/01/24 Neelima Rush LPN [address] [address] 08/01/24 documented as of this encounter
--- OUTSIDE RECORDS SUMMARY | 2024-12-12 09:54 | XMS_ITS | Encounter Summary ---
Author Organization [facility] Address [address] [place] [address] Care Team Providers Care Office Machines Sales Representative Name Role Phone Gregg Lopez MD Unavailable [phone] Gregg Lopez MD Primary Care Provider [phone] Gregg Lopez MD Unavailable [phone] Serena Huertas RN Unavailable Gregg Lopez MD Unavailable [phone] Neelima Rush LPN Unavailable Encounter Details Date Type Department Care Team (Late st Contact Info) Description 06/18/2023 [facility] [address] [facility] 110 [place] [address] A, Unknown Practice [address] [place] [address] Social History Tobacco Use Types Packs/Day Years [...] week 04/25/2023 How often do you attend [facility] or hindu services? 1 to 4 times per year 04/25/2023 Do you belong to any clubs o r organizations such as cheondoism groups, unions, fraternal or athletic groups, or [...] and heating? Not hard at all 04/25/2023 [facility] [place] of Occupat ional Health - Occupational Stress [...] place to sleep or slept in a long term (including now)? No 04/25/2023 Sex and Gender Information Value Date Recorded Sex Assigned at Not on file Legal Sex Male 6:36 PM EDT Gender Identity Not on file Sexual Orientation Not on file documented as of this encounter Plan of Treatment Upcoming Encounters Date Type Department Care Team (Late st Contact Info) Description 12/17/2024 10:30 AM EDT Office Visit [facility] [place] [facility] [address] [facility] 110 [place] [address] Gregg Lopez MD [address] [facility] 110 [place] [address] 02/16/2025 10:15 AM EDT Office Visit [facility] [place] [facility] [address] [place] [address] [place] [address] Gregg Lopez MD [address] [facility] 110 [place] [address] 03/09/2025 10:50 AM EDT Office Visit [facility] [place] [facility] [address] [place] [address] [place] [address] Ivette Michelle, JEWELSMITH-SCARF AND ANNEAL OPERATOR [address] [place] [address] [place] [address] 10/09/2025 8:15 AM EDT Office Visit [facility] [address] [place] [place] [address] Eben Ortiz, [address] [place] [address] documented as of this encounter Procedures Procedure Name Priority Date/Time Associated Diagnosis Comments SCANNED LABS Routine 06/18/2023 1:21 PM EST documented in this encounter Results * SCANNED LABS (06/18/2023 1:21 PM EST) us Unknown Practice A LAB CHG PERFORMABLES Final Re sult documented in this encounter Visit Diagnoses Not on filedocumented in this encounter Care Teams Office Machines Sales Representative Relationship Specialty Start Date End Date Gregg Lopez MD [address] [place] [address] [place] [address] PCP - ACO Reach 10/05/22 06/19/24 Gregg Lopez MD [address] [place] [address] [place] [address] PCP - General Internal Medicine 11/08/22 Gregg Lopez MD [address] [place] [address] [place] [address] PCP - Devoted 05/14/24 Gregg Lopez MD [address] [place] [address] [place] [address] PCP - ACO Reach 06/27/24 08/14/24 Serena Huertas, RN [address] [place] [address] Clinical Advocate Family Medicine 06/20/24 08/01/24 Neelima Rush LPN 112 [facility] 110 [place] [address] 08/01/24 documented as of this encounter
--- OUTSIDE RECORDS SUMMARY | 2024-12-12 09:54 | XMS_ITS | Encounter Summary ---
Author Organization [facility] Address [address] [place] [address] Care Team Providers Care Cutter Out Name Role Phone Gregg Lopez MD Unavailable [phone] Gregg Lopez MD Primary Care Provider Gregg Lopez MD Unavailable [phone] Serena Huertas RN Unavailable Gregg Lopez MD Unavailable [phone] Neelima Rush LPN Unavailable Encounter Details Date Type Department Care Team (Late st Contact Info) Description 10/25/2022 Abstract [facility] [place] [facility] [address] [place] [address] [place] [address] Gregg Lopez MD [address] [place] [place] [address] Social History Tobacco Use Types Packs/Day Years Used Date Smoking Tobacco: Never Assessed Sex and Gender Information Value Date Recorded Sex Assigned at Not on file Legal Sex Male 6:36 PM EDT Gender Identity Not on file Sexual Orientation Not on file documented as of this encounter Plan of Treatment Upcoming Encounters Date Type Department Care Team (Late st Contact Info) Description 12/17/2024 10:30 AM EDT Office [facility] [place] [facility] [address] [place] [address] [place] [address] Gregg Lopez MD [address] [place] [address] [place] [address] 02/16/2025 10:15 AM EDT Office Visit [facility] [place] [facility] [address] [place] [address] [place] [address] Gregg Lopez MD [address] [place] [address] [place] [address] 03/09/2025 10:50 AM EDT Office Visit [facility] [place] [facility] [address] [place] [address] Ivette Michelle APRN-LEGAL SERVICES PROFESSIONAL [address] [place] [address] 10/09/2025 8:15 AM EDT Office Visit [facility] [address] [place] [address] Eben Ortiz DO [address] [place], [place] [address] documented as of this encounter Visit Diagnoses Not on filedocumented in this encounter Care Teams Cutter Out Relationship Specialty Start Date End Date Gregg Lopez MD [address] [place] [place] [address] PCP - ACO Reach 10/05/22 06/19/24 Gregg Lopez MD [address] [place] [address] PCP - General Internal Medicine 11/08/22 Gregg Lopez MD [address] [place] [address] PCP - Devoted 05/14/24 Gregg Lopez MD [address] [facility] 110 [place] [address] PCP - ACO Reach 06/27/24 08/14/24 Serena Huertas, RN [address] [place] [address] Clinical Advocate Family Medicine 06/20/24 08/01/24 Neelima Rush LPN [address] [facility] 110 [place] [address] 08/01/24 documented as of this encounter
--- OUTSIDE RECORDS SUMMARY | 2024-12-12 09:54 | XMS_ITS | Encounter Summary ---
Author Organization [facility] Address [address] [place] [address] Care Team Providers Care Air Brush Artist Name Role Phone Gregg Lopez MD Primary Care Provider [phone] Gregg Lopez MD Unavailable [phone] Serena Huertas RN Unavailable [phone] Gregg Lopez MD Unavailable [phone] Neelima Rush LPN Unavailable Encounter Details Date Type Department Care Team (Late st Contact Info) Description 06/25/2024 Abstract [facility] [place] [facility] [place] 112 [facility] 110 [place] [address] Gregg Lopez MD 112 [facility] 110 [place] [address] Social History Tobacco Use Types Packs/Day Years [...] week 04/25/2023 How often do you attend [facility] or cheondoism services? 1 to 4 times per year 04/25/2023 Do you belong to any clubs o r organizations such as yarsanism groups, unions, fraternal or athletic groups, or [...] Date Recorded Patient Health Questionnaire-2 Score 0 06/11/2024 [facility] of Occupat ional Health - Occupational [...] place to sleep or slept in a senior living (including now)? No 04/25/2023 Sex and Gender [...] Visit [facility] [place] [facility] [address] [facility] 110 [place] [address] Gregg Lopez MD [address] [facility] 110 [place] [address] 02/16/2025 10:15 AM EDT Office Visit [facility] [place] [facility] [address] [place] [address] [place] [address] Gregg Lopez MD [address] [place] [address] [place] [address] 03/09/2025 10:50 AM EDT Office Visit [facility] [place] [facility] [address] [place] [address] Ivette Michelle, SPECIAL POLICE-KNITTED GOODS SHAPER [address] [place] [address] 10/09/2025 8:15 AM EDT Office Visit [facility] [address] [place] [address] Eben Ortiz DO [address] [place] [address] documented as of this encounter Visit Diagnoses Not on filedocumented in this encounter Care Teams Air Brush Artist Relationship Specialty Start Date End Date Gregg Lopez MD [address] [facility] 110 [place] [address] PCP - General Internal Medicine 11/08/22 Gregg Lopez MD [address] [place] [address] [place] [address] PCP - Devoted 05/14/24 Gregg Lopez MD [address] [facility] 110 [place] [address] PCP - ACO Reach 06/27/24 08/14/24 Serena Huertas, RN [address] [place] [address] Clinical Advocate Family Medicine 06/20/24 08/01/24 Neelima Rush LPN 112 [facility] 110 [place] [address] 08/01/24 documented as of this encounter
--- OUTSIDE RECORDS SUMMARY | 2024-12-12 09:54 | XMS_ITS | Encounter Summary ---
Author Organization [facility] Address [address] [place] [address] Phone Care Team Providers Care Aircraft Sales Representative Name Role Phone Gregg Lopez MD Primary Care Provider [phone] Encounter Details Date Type Department Care Team (Late st Contact Info) Description 11/19/2019 Orders Only [facility] [address] [place] [address] Conversion, Onbase Social History Tobacco Use Types Packs/Day Years Used Date Smoking Tobacco: Never Assessed Sex and Gender Information Value Date Recorded Sex Assigned at Not on file Legal Sex Male 4:05 PM EST Gender Identity Not on file Sexual Orientation Not on file documented as of this encounter Plan of Treatment Upcoming Encounters Date Type Department Care Team (Late st Contact Info) Description 12/18/2024 10:30 AM EDT Office Visit [place] [address] [place] [address] Walter Rain MD 703 [facility], [address] [place] [address] Scheduled Orders Name Type Priority Associated Diagnoses Orde r Schedule OUTSIDE LAB SCAN Lab Ordered: 11/19/2019 documented as of this encounter Visit Diagnoses Not on filedocumented in this encounter Care Teams Aircraft Sales Representative Relationship Specialty Start Date End Date Gregg Lopez MD [address] [facility] 110 [place] [address] PCP - General 10/12/22 documented as of this encounter
--- OUTSIDE RECORDS SUMMARY | 2024-12-12 09:54 | XMS_ITS | Encounter Summary ---
Author Organization [facility] Address [address] [place] [address] Care Team Providers Care Solar System Designer Name Role Phone Gregg Lopez MD Primary Care Provider [phone] Gregg Lopez MD Unavailable [phone] Neelima Rush LPN Unavailable Encounter Details Date Type Department Care Team (Late st Contact Info) Description 09/22/2024 Abstract [facility] [place] [facility] 112 [facility] 110 [place] [address] Gregg Lopez MD 112 [facility] 110 [place], [place] [address] Social History Tobacco Use Types Packs/Day Years [...] How often do you attend chur or adventist services? 1 to 4 times per year 04/25/2023 Do you belong to any clubs o r organizations such as sikh groups, unions, fraternal or athletic groups, or [...] Recorded Patient Health Questionnaire-2 Score 0 06/11/2024 [facility] [place] of Occupat ional Health - Occupational Stress [...] Visit [facility] [place] [facility] [address] [facility] 110 [place] [address] Gregg Lopez MD [address] [facility] 110 [place] [address] 02/16/2025 10:15 AM EDT Office Visit [facility] [place] [facility] [address] [place] [place] [address] Gregg Lopez MD [address] [place] [address] [place] [address] 03/09/2025 10:50 AM EDT Office Visit [facility] [place] [facility] [address] [place] [address] Ivette Michelle, LIQUID SUGAR MELTER-MATERIALS ASSISTANT [address] [place], [place] [address] 10/09/2025 8:15 AM EDT Office Visit [facility] [address] [place] [address] Eben Ortiz, DO [address] [place] [address] documented as of this encounter Visit Diagnoses Not on filedocumented in this encounter Care Teams Solar System Designer Relationship Specialty Start Date End Date Gregg Lopez MD [address] [place] [address] PCP - General Internal Medicine 11/08/22 Gregg Lopez MD [address] [place] [address] PCP - Devoted 05/14/24 Neelima Rush LPN [address] [place] [address] 08/01/24 documented as of this encounter
--- OUTSIDE RECORDS SUMMARY | 2024-12-12 09:54 | XMS_ITS | Encounter Summary ---
Author Organization [facility] Address [address] [place] [address] Care Team Providers Care Quality Checker Name Role Phone Gregg Lopez MD Primary Care Provider [phone] Gregg Lopez MD Unavailable [phone] Neelima Rush LPN Unavailable Encounter Details Date Type Department Care Team (Late st Contact Info) Description 09/29/2024 Abstract [facility] [place] [facility] 112 [facility] 110 [place] [address] Gregg Lopez MD 112 [facility] 110 [place], [place] [address] Social History Tobacco Use Types Packs/Day Years [...] How often do you attend chur or mu-ism services? 1 to 4 times per year 04/25/2023 Do you belong to any clubs o r organizations such as uatsdin groups, unions, fraternal or athletic groups, or [...] Recorded Patient Health Questionnaire-2 Score 0 06/11/2024 [facility] [place] of Occupat ional Health - Occupational Stress [...] place to sleep or slept in a mcc (including now)? No 04/25/2023 Sex and Gender [...] Visit [facility] [place] [facility] [address] [facility] 110 [place] [address] Gregg Lopez MD [address] [facility] 110 [place] [address] 02/16/2025 10:15 AM EDT Office Visit [facility] [place] [facility] [address] [place] [address] Gregg Lopez MD [address] [place] [address] 03/09/2025 10:50 AM EDT Office Visit [facility] [place] [facility] [address] [place] [address] Ivette Michelle, SALES DEVELOPMENT REPRESENTATIVE-THRESHING MACHINE OPERATOR [address] [place], [place] [address] 10/09/2025 8:15 AM EDT Office Visit [facility] [address] [place] [address] Eben Ortiz, DO [address] [address] documented as of this encounter Visit Diagnoses Not on filedocumented in this encounter Care Teams Quality Checker Relationship Specialty Start Date End Date Gregg Lopez MD [address] [place] [address] PCP - General Internal Medicine 11/08/22 Gregg Lopez MD [address] [place] [address] PCP - Devoted 05/14/24 Neelima Rush LPN [address] [place] [address] 08/01/24 documented as of this encounter
--- OUTSIDE RECORDS SUMMARY | 2024-12-12 09:54 | XMS_ITS | Encounter Summary ---
Author Organization [facility] Address [address] [place] [address] Care Team Providers Care Chair Name Role Phone Gregg Lopez MD Unavailable [phone] Gregg Lopez MD Primary Care Provider Gregg Lopez MD Unavailable [phone] Serena Huertas RN Unavailable Gregg Lopez MD Unavailable [phone] Neelima Rush LPN Unavailable Encounter Details Date Type Department Care Team (Late st Contact Info) Description 11/21/2023 [facility] 112 [facility] 110 [place] [address] Gregg Lopez MD [address] [place] [address] [facility] 110 [place], [place] [address] Social History Tobacco Use Types Packs/Day Years [...] any clubs o r organizations such as yazdanism groups, unions, fraternal or athletic groups, or [...] and heating? Not hard at all 04/25/2023 [facility] [place] of Occupat ional Health - Occupational Stress [...] place to sleep or slept in a usp (including now)? No 04/25/2023 Sex and Gender [...] Visit [facility] [place] [address] [facility] 110 [place] [address] Gregg Lopez MD [address] [facility] 110 [place] [address] 02/16/2025 10:15 AM EDT Office Visit [facility] [place] [address] [place] [address] Gregg Lopez MD [address] [facility] 110 [place] [address] 03/09/2025 10:50 AM EDT Office Visit [facility] [place] [facility] [address] [place] [address] Ivette Michelle, DIGITAL SPECIALIST-COBOL PROGRAMMER [address] [place] [address] 10/09/2025 8:15 AM EDT Office Visit [facility] [address] [place] [address] Eben Ortiz, DO [address] [place] [address] documented as of this encounter Visit Diagnoses Not on filedocumented in this encounter Care Teams Chair Relationship Specialty Start Date End Date Gregg Lopez MD [address] [place] [address] PCP - ACO Reach 10/05/22 06/19/24 Gregg Lopez MD [address] [facility] 110 [place] [address] PCP - General Internal Medicine 11/08/22 Gregg Lopez MD [address] [place] [address] PCP - Devoted 05/14/24 Gregg Lopez MD [address] [place] [address] PCP - ACO Reach 06/27/24 08/14/24 Serena Huertas, RN [address] [place] [address] Clinical Advocate Family Medicine 06/20/24 08/01/24 Neelima Rush LPN 112 [facility] 110 [place] [id number] 08/01/24 documented as of this encounter
--- OUTSIDE RECORDS SUMMARY | 2024-12-12 09:54 | XMS_ITS | Encounter Summary ---
Author Organization [facility] Healthcare Address [address] [place] [address] Care Team Providers Care Manager Roofing Name Role Phone Gregg Lopez MD Primary Care Provider [phone] Gregg Lopez MD Unavailable [phone] Neelima Rush LPN Unavailable Encounter Details Date Type Department Care Team (Late st Contact Info) Description 12/10/2024 Patient Outreach [facility] [address] [place] [address] Neelima Rush LPN [address] [facility] 110 [place] [address] Social History Tobacco Use Types Packs/Day Years [...] How often do you attend chur or latter day services? 1 to 4 times per year 04/25/2023 Do you belong to any clubs o r organizations such as judaism groups, unions, fraternal or athletic groups, or [...] Recorded Patient Health Questionnaire-2 Score 0 10/08/2024 [facility] of Occupat ional Health - Occupational Stress [...] place to sleep or slept in a alf (including now)? No 04/25/2023 Sex and Gender Information Value Date Recorded Sex Assigned at Not on file Legal Sex Male 6:36 PM EDT Gender Identity Not on file Sexual Orientation Not on file documented as of this encounter Progress Notes * Neelima Rush LPN - 12/10/2024 12:40 PM EDT Pt calls and would like to schedule an appt with Dr. Sarabia. Pt states he is concerned about weightloss and that he has had more dizzy spells. He shares he would like to talk to about a few otherthings too. Appt scheduled for 12/12. Denies any further needs or concerns at this time. Encouragedto call if any do arise. documented in this encounter Plan of Treatment Upcoming Encounters Date Type Department Care Team (Late st Contact Info) Description 12/17/2024 10:30 AM EDT Office Visit [facility] [place] [facility] [address] [place] [place] [address] Gregg Lopez MD [address] [place] [place] [address] 02/16/2025 10:15 AM EDT Office Visit [facility] [place] [facility] [address] [place] [address] Gregg Lopez MD [address] [place] [address] [place] [address] 03/09/2025 10:50 AM EDT Office Visit [facility] [place] [facility] [address] [place] [address] Ivette Michelle, SENIOR ECOLOGIST-EGG CRATER [address] [place] [place] [address] 10/09/2025 8:15 AM EDT Office Visit [facility] [address] [place] [address] Eben Ortiz DO [address] [place], [place] [phone] documented as of this encounter Visit Diagnoses Diagnosis Stage 3a chronic kidney disease (CMS-HCC)- Primary Typical atrial flutter (HCC) documented in this encounter Care Teams Manager Roofing Relationship Specialty Start Date End Date Gregg Lopez MD [address] [place] [place] [address] PCP - General Internal Medicine 11/08/22 Gregg Lopez MD [address] [place] [address] [place] [address] PCP - Devoted 05/14/24 Neelima Rush LPN 112 [facility] 110 [place] [address] 08/01/24 documented as of this encounter
--- OUTSIDE RECORDS SUMMARY | 2024-12-12 09:54 | XMS_ITS | Encounter Summary ---
Author Organization [facility] Address [address] [place] [address] Care Team Providers Care Cloth Washer Name Role Phone Gregg Lopez MD Primary Care Provider [phone] Gregg Lopez MD Unavailable [phone] Serena Huertas RN Unavailable Gregg Lopez MD Unavailable [phone] Neelima Rush LPN Unavailable Encounter Details Date Type Department Care Team (Late st Contact Info) Description 06/24/2024 Abstract [facility] [place] [facility] 112 [facility] 110 [place] [address] Gregg Lopez MD 112 [facility] 110 [place] [address] Social History Tobacco Use Types [...] week 04/25/2023 How often do you attend [facility] or mormon services? 1 to 4 times per year 04/25/2023 Do you belong to any clubs o r organizations such as mandaen groups, unions, fraternal or athletic groups, or [...] Recorded Patient Health Questionnaire-2 Score 0 06/11/2024 [facility] of Occupat ional Health - Occupational Stress [...] place to sleep or slept in a care home (including now)? No 04/25/2023 Sex and Gender [...] Visit [facility] [place] [facility] [address] [facility] 110 [place] [address] Gregg Lopez MD [address] [facility] 110 [place] [address] 02/16/2025 10:15 AM EDT Office Visit [facility] [place] [facility] [address] [place] [address] Gregg Lopez MD [address] [place] [place] [address] 03/09/2025 10:50 AM EDT Office Visit [facility] [place] [facility] [address] [place] [address] Ivette Michelle, PLAYERS CLUB REPRESENTATIVE-ORNAMENT SETTER [address] [place] [address] 10/09/2025 8:15 AM EDT Office Visit [facility] [address] [place] [address] Eben Ortiz DO [address] [place] [address] documented as of this encounter Visit Diagnoses Not on filedocumented in this encounter Care Teams Cloth Washer Relationship Specialty Start Date End Date Gregg Lopez MD [address] [facility] 110 [place] [address] PCP - General Internal Medicine 11/08/22 Gregg Lopez MD [address] [place] [address] PCP - Devoted 05/14/24 Gregg Lopez MD [address] [facility] 110 [place] [address] PCP - ACO Reach 06/27/24 08/14/24 Serena Huertas, RN [address] [place] [address] Clinical Advocate Family Medicine 06/20/24 08/01/24 Neelima Rush LPN 112 [facility] 110 [place] [address] 08/01/24 documented as of this encounter
--- OUTSIDE RECORDS SUMMARY | 2024-12-12 09:54 | XMS_ITS | Encounter Summary ---
Author Organization [facility] Address [address] [place] [address] Phone Care Team Providers Care Consumer Safety Inspector Name Role Phone Gregg Lopez MD Primary Care Provider [phone] Encounter Details Date Type Department Care Team (Late st Contact Info) Description 05/11/2019 Orders Only [facility] [address] [place] [address] Conversion, Onbase Social History Tobacco Use Types [...] Description 12/18/2024 10:30 AM EDT Office Visit [place] [address] [place] [phone] Walter Rain MD 703 [facility] 2, [address] [place] [address] Scheduled Orders Name Type Priority Associated Diagnoses Orde r Schedule OUTSIDE LAB SCAN Lab Ordered: 05/11/2019 documented as of this encounter Visit Diagnoses Not on filedocumented in this encounter Care Teams Consumer Safety Inspector Relationship Specialty Start Date End Date Gregg Lopez MD [address] [facility] 110 [place] [address] PCP - General 10/12/22 documented as of this encounter
--- OUTSIDE RECORDS SUMMARY | 2024-12-12 09:54 | XMS_ITS | Encounter Summary ---
Author Organization [facility] Address [address] [place] [address] Care Team Providers Care Ambulance Driver Name Role Phone Gregg Lopez MD Primary Care Provider [phone] Gregg Lopez MD Unavailable [phone] Serena Huertas RN Unavailable [phone] Gregg Lopez MD Unavailable [phone] Neelima Rush LPN Unavailable Encounter Details Date Type Department Care Team (Late st Contact Info) Description 06/23/2024 Abstract [facility] [place] [facility] 112 [facility] 110 [place] [address] Gregg Lopez MD 112 [facility] 110 [place] [address] Social History Tobacco Use Types [...] week 04/25/2023 How often do you attend [facility] or taoist services? 1 to 4 times per year 04/25/2023 Do you belong to any clubs o r organizations such as nondenominational groups, unions, fraternal or athletic groups, or [...] Recorded Patient Health Questionnaire-2 Score 0 06/11/2024 [facility] of Occupat ional Health - [...] Visit [facility] [place] [facility] [address] [facility] 110 [place] [address] Gregg Lopez MD [address] [facility] 110 [place] [address] 02/16/2025 10:15 AM EDT Office Visit [facility] [place] [facility] [address] [place] [address] Gregg Lopez MD [address] [place] [address] [place] [address] 03/09/2025 10:50 AM EDT Office Visit [facility] [place] [facility] [address] [place] [address] Ivette Michelle, ENZYME CHEMIST-DRY COLOR MIXER [address] [place] [address] 10/09/2025 8:15 AM EDT Office Visit [facility] [address] [place] [address] Eben Ortiz DO [address] [place] [address] documented as of this encounter Visit Diagnoses Not on filedocumented in this encounter Care Teams Ambulance Driver Relationship Specialty Start Date End Date Gregg Lopez MD [address] [facility] 110 [place] [address] PCP - General Internal Medicine 11/08/22 Gregg Lopez MD [address] [place] [place] [address] PCP - Devoted 05/14/24 Gregg Lopez MD [address] [facility] 110 [place] [address] PCP - ACO Reach 06/27/24 08/14/24 Serena Huertas, RN [address] [place] [address] Clinical Advocate Family Medicine 06/20/24 08/01/24 Neelima Rush LPN 112 [facility] 110 [place] [address] 08/01/24 documented as of this encounter
--- OUTSIDE RECORDS SUMMARY | 2024-12-12 09:54 | XMS_ITS | Encounter Summary ---
Author Organization [facility] Address [address] [place] [address] Care Team Providers Care Vehicle Operator Technician Name Role Phone Gregg Lopez MD Unavailable [phone] Gregg Lopez MD Primary Care Provider Gregg Lopez MD Unavailable [phone] Serena Huertas RN Unavailable Gregg Lopez MD Unavailable [phone] Neelima Rush LPN Unavailable Encounter Details Date Type Department Care Team (Late st Contact Info) Description 04/20/2023 Abstract [facility] [address] [place] [address] Dinh Rodriguez PA [address] [place] [address] Social History Tobacco Use Types Packs/Day Years Used Date Smoking Tobacco: Never Smokeless Tobacco: Never Alcohol Use Standard Drinks/Week Comments Never 0 (1 standard drink = 0.6 oz pure alcohol) caffeine 1-2 cups/day; coffee, pop AUDIT-C Answer Date Recorded Q1: How often do you have a drink containing alc ohol? 2-4 times a month 03/15/2023 Average Number of Drinks Not on file 11/02/2 023 Frequency of Binge Drinking Not on file 06/2022 Sex and Gender Information Value Date Recorded [...] [address] [place] [address] Gregg Lopez MD [address] [place] [address] 02/16/2025 10:15 AM EDT Office Visit [facility] [place] [facility] [address] [place] [address] Gregg Lopez MD [address] [place] [address] 03/09/2025 10:50 AM EDT Office Visit [facility] [place] [facility] [address] [place] [address] Ivette Michelle, DINKEY OPERATOR SLATE-BOTTLE DEALER [address] [place] [address] 10/09/2025 8:15 AM EDT Office Visit [facility] [address] [place] [address] Eben Ortiz, [address] [place] [address] documented as of this encounter Visit Diagnoses Not on filedocumented in this encounter Care Teams Vehicle Operator Technician Relationship Specialty Start Date End Date Gregg Lopez MD [address] [place] [address] PCP - ACO Reach 10/05/22 06/19/24 Gregg Lopez MD [address] [facility] 110 [place] [address] PCP - General Internal Medicine 11/08/22 Gregg Lopez MD [address] [facility] 110 [place] [address] PCP - Devoted 05/14/24 Gregg Lopez MD [address] [facility] 110 [place] [address] PCP - ACO Reach 06/27/24 08/14/24 Serena Huertas, RN [address] [place] [address] Clinical Advocate Family Medicine 06/20/24 08/01/24 Neelima Rush LPN [address] [facility] 110 [place] [address] 08/01/24 documented as of this encounter
--- OUTSIDE RECORDS SUMMARY | 2024-12-12 09:54 | XMS_ITS | Encounter Summary ---
Author Organization [facility] Address [address] [place] [address] Care Team Providers Care Casino Slot Supervisor Name Role Phone Gregg Lopez MD Primary Care Provider [phone] Gregg Lopez MD Unavailable [phone] Serena Huertas RN Unavailable Gregg Lopez MD Unavailable [phone] Neelima Rush LPN Unavailable Encounter Details Date Type Department Care Team (Late st Contact Info) Description 06/30/2024 Abstract [facility] [place] [facility] 112 [facility] 110 [place] [address] Gregg Lopez MD 112 [facility] 110 [place] [address] Social History Tobacco Use Types [...] week 04/25/2023 How often do you attend [facility] or jain services? 1 to 4 times per year 04/25/2023 Do you belong to any clubs o r organizations such as congregation groups, unions, fraternal or athletic groups, or [...] Recorded Patient Health Questionnaire-2 Score 0 06/11/2024 [facility] of Occupat ional Health - Occupational [...] place to sleep or slept in a correction (including now)? No 04/25/2023 Sex and Gender [...] Visit [facility] [place] [facility] [address] [facility] [address] [place] [address] Gregg Lopez MD [address] [facility] 110 [place] [address] 02/16/2025 10:15 AM EDT Office Visit [facility] [place] [facility] [address] [place] [address] Gregg Lopez MD [address] [place] [address] 03/09/2025 10:50 AM EDT Office Visit [facility] [place] [facility] [address] [place] [address] Ivette Michelle, GLAZIER STRUCTURAL GLASS-OILSEED MEAT PRESSER [address] [place] [address] 10/09/2025 8:15 AM EDT Office Visit [facility] [address] [place] [address] Eben Ortiz DO [address] [place] [address] documented as of this encounter Visit Diagnoses Not on filedocumented in this encounter Care Teams Casino Slot Supervisor Relationship Specialty Start Date End Date Gregg Lopez MD [address] [facility] 110 [place] [address] PCP - General Internal Medicine 11/08/22 Gregg Lopez MD [address] [place] [address] PCP - Devoted 05/14/24 Gregg Lopez MD [address] [facility] 110 [place] [address] PCP - ACO Reach 06/27/24 08/14/24 Serena Huertas, RN [address] [place] [address] Clinical Advocate Family Medicine 06/20/24 08/01/24 Neelima Rush LPN 112 [facility] 110 [place] [address] 08/01/24 documented as of this encounter
--- OUTSIDE RECORDS SUMMARY | 2024-12-12 09:54 | XMS_ITS | Encounter Summary ---
Author Organization [facility] Address [address] [place] [place] [address] Care Team Providers Care Smash Hand Name Role Phone Gregg Lopez MD Primary Care Provider [phone] Gregg Lopez MD Unavailable [phone] Serena Huertas RN Unavailable [phone] Gregg Lopez MD Unavailable [phone] Neelima Rush LPN Unavailable Encounter Details Date Type Department Care Team (Late st Contact Info) Description 07/02/2024 Abstract [facility] [place] [facility] 112 [facility] 110 [place] [address] Gregg Lopez MD 112 [facility] 110 [place] [address] Social History Tobacco Use Types [...] week 04/25/2023 How often do you attend [facility] or gnosticism services? 1 to 4 times per year 04/25/2023 Do you belong to any clubs o r organizations such as quaker groups, unions, fraternal or athletic groups, or [...] Recorded Patient Health Questionnaire-2 Score 0 06/11/2024 [facility] of Occupat ional Health - [...] Visit [facility] [place] [facility] [address] [facility] 110 [place] [address] Gregg Lopez MD [address] [facility] 110 [place] [address] 02/16/2025 10:15 AM EDT Office Visit [facility] [place] [facility] [address] [place] [address] Gregg Lopez MD [address] [place] [address] 03/09/2025 10:50 AM EDT Office Visit [facility] [place] [facility] [address] [place] [address] Ivette Michelle, SUPERVISOR PRODUCT INSPECTION-PLATFORM ATTENDANT [address] [place] [address] 10/09/2025 8:15 AM EDT Office Visit [facility] [address] [place] [address] Eben Ortiz DO [address] [place] [address] documented as of this encounter Visit Diagnoses Not on filedocumented in this encounter Care Teams Smash Hand Relationship Specialty Start Date End Date Gregg Lopez MD [address] [facility] 110 [place] [address] PCP - General Internal Medicine 11/08/22 Gregg Lopez MD [address] [place] [address] PCP - Devoted 05/14/24 Gregg Lopez MD [address] [facility] 110 [place] [address] PCP - ACO Reach 06/27/24 08/14/24 Serena Huertas, RN [address] [place] [address] Clinical Advocate Family Medicine 06/20/24 08/01/24 Neelima Rush LPN 112 [facility] 110 [place] [address] 08/01/24 documented as of this encounter
--- OUTSIDE RECORDS SUMMARY | 2024-12-12 09:54 | XMS_ITS | Encounter Summary ---
Author Organization [facility] Address [address] [place] [address] Care Team Providers Care Butcher Name Role Phone Gregg Lopez MD Unavailable [phone] Gregg Lopez MD Primary Care Provider Gregg Lopez MD Unavailable [phone] Serena Huertas RN Unavailable [phone] Gregg Lopez MD Unavailable [phone] Neelima Rush LPN Unavailable Encounter Details Date Type Department Care Team (Late st Contact Info) Description 07/31/2023 Orders Only [facility] [place] [facility] [address] [place] [address] Unallocated, N[facility] MD [place] [address] [place], [place] [phone] Social History Tobacco Use Types Packs/Day Years [...] and heating? Not hard at all 04/25/2023 [facility] of Occupat ional Health - Occupational Stress [...] place to sleep or slept in a long-term (including now)? No 04/25/2023 Sex and Gender Information Value Date Recorded Sex Assigned at Not on file Legal Sex Male 6:36 PM EDT Gender Identity Not on file Sexual Orientation Not on file documented as of this encounter Plan of Treatment Upcoming Encounters Date Type Department Care Team (Late st Contact Info) Description 12/17/2024 10:30 AM EDT Office Visit [facility] [place] [facility] [address] [facility] 110 [place] [address] Gregg Lopez MD [address] [facility] 110 [place] [address] 02/16/2025 10:15 AM EDT Office Visit [facility] [place] [facility] [address] [facility] 110 [place] [address] Gregg Lopez MD [address] [place] [address] 03/09/2025 10:50 AM EDT Office Visit [facility] [place] [facility] [address] [place] [address] Ivette Michelle, PARTS FABRICATOR-BOTTLE HOUSE QUALITY CONTROL TECHNICIAN [address] [place] [address] 10/09/2025 8:15 AM EDT Office Visit [facility] [address] [place] [address] Eben Ortiz, [address] [place] [address] documented as of this encounter Procedures Procedure Name Priority Date/Time Associated Diagnosis Comments SCANNED LABS Routine 07/31/2023 3:35 PM EDT SCANNED LABS Routine 06/18/2023 8:34 AM EST documented in this encounter Results * SCANNED LABS (07/31/2023 3:35 PM EDT) us Unknown Practice A LAB CHG PERFORMABLES Final Re sult * SCANNED LABS (06/18/2023 8:34 AM EST) us Noms Provider Unallocated LAB CHG PERFORMABLE S Final Result documented in this encounter Visit Diagnoses Not on filedocumented in this encounter Care Teams Butcher Relationship Specialty Start Date End Date Gregg Lopez MD [address] [place] [address] PCP - ACO Reach 10/05/22 06/19/24 Gergg Lopez MD [address] [place] [address] PCP - General Internal Medicine 11/08/22 Gregg Lopez MD [address] [facility] 110 [place] [address] PCP - Devoted 05/14/24 Gregg Lopez MD [address] [facility] 110 [place] [address] PCP - ACO Reach 06/27/24 08/14/24 Serena Huertas, [place] [address] [facility] [place] [address] Clinical Advocate Family Medicine 06/20/24 08/01/24 Neelima Rush LPN [address] [facility] [place] [address] 08/01/24 documented as of this encounter
--- OUTSIDE RECORDS SUMMARY | 2024-12-12 09:54 | XMS_ITS | Encounter Summary ---
Author Organization [facility] Address [address] [place] [address] Care Team Providers Care Wood Pole Treater Name Role Phone Gregg Lopez MD Unavailable [phone] Gregg Lopez MD Primary Care Provider Gregg Lopez MD Unavailable [phone] Serena Huertas RN Unavailable Gregg Lopez MD Unavailable [phone] Neelima Rush LPN Unavailable Encounter Details Date Type Department Care Team (Late st Contact Info) Description 06/26/2023 [facility] 112 [facility] 110 [place] [address] Gregg Lopez MD [address] [facility] 110 [place], [place] [address] Social History Tobacco Use Types Packs/Day Years [...] How often do you attend chur or adventism services? 1 to 4 times per year 04/25/2023 Do you belong to any clubs o r organizations such as adventism groups, unions, fraternal or athletic groups, or [...] and heating? Not hard at all 04/25/2023 [facility] [place] of Occupat ional Health - Occupational Stress [...] place to sleep or slept in a assisted (including now)? No 04/25/2023 Sex and Gender [...] Visit [facility] [place] [address] [facility] 110 [place] [address] Gregg Lopez MD [address] [facility] 110 [place] [address] 02/16/2025 10:15 AM EDT Office Visit [facility] [place] [facility] [address] [place] 110 [place] [address] Gregg Lopez MD [address] [facility] 110 [place] [address] 03/09/2025 10:50 AM EDT Office Visit [facility] [place] [facility] [address] [place] [place] [address] Ivette Michelle, CHILDREN'S LUNCHROOM SUPERVISOR-SOLAR INSTALLER TECHNICIAN [address] [place] [address] [place] [address] 10/09/2025 8:15 AM EDT Office Visit [facility] [address] [place] [address] Eben Ortiz, DO [address] [place] [address] documented as of this encounter Visit Diagnoses Not on filedocumented in this encounter Care Teams Wood Pole Treater Relationship Specialty Start Date End Date Gregg Lopez MD [address] [place] [address] [place] [address] PCP - ACO Reach 10/05/22 06/19/24 Gregg Lopez MD [address] [facility] 110 [place] [address] PCP - General Internal Medicine 11/08/22 Gregg Lopez MD [address] [place] [address] [place] [address] PCP - Devoted 05/14/24 Gregg Lopez MD [address] [place] [address] [place] [address] PCP - ACO Reach 06/27/24 08/14/24 Serena Huertas, RN [address] [place] [address] Clinical [facility] 06/20/24 08/01/24 Neelima Rush LPN 112 [facility] 110 [place] [id number] 08/01/24 documented as of this encounter
--- OUTSIDE RECORDS SUMMARY | 2024-12-12 09:54 | XMS_ITS | Encounter Summary ---
Author Organization [facility] Address [address] [place] [address] Care Team Providers Care Printed Circuit Board Drafter Name Role Phone Gregg Lopez MD Primary Care Provider [phone] Gregg Lopez MD Unavailable [phone] Neelima Rush LPN Unavailable Encounter Details Date Type Department Care Team (Late st Contact Info) Description 09/24/2024 Abstract [facility] [place] [facility] 112 [facility] 110 [place] [address] Gregg Lopez MD 112 [facility] 110 [place], [place] [id number] Social History Tobacco Use Types Packs/Day Years [...] How often do you attend chur or muslim services? 1 to 4 times per year 04/25/2023 Do you belong to any clubs o r organizations such as spiritism groups, unions, fraternal or athletic groups, or [...] Recorded Patient Health Questionnaire-2 Score 0 06/11/2024 [facility] [place] of Occupat ional Health - Occupational Stress [...] place to sleep or slept in a halfway (including now)? No 04/25/2023 Sex and Gender [...] Visit [facility] [place] [address] [facility] 110 [place] [address] Gregg Lopez MD [address] [facility] 110 [place] [address] 02/16/2025 10:15 AM EDT Office Visit [facility] [place] [address] [place] [address] [place] [address] Gregg Lopez MD [address] [place] [address] [place] [address] 03/09/2025 10:50 AM EDT Office Visit [facility] [place] [facility] [address] [place] [address] Ivette Michelle, MANUFACTURING MECHANIC-BRILLIANDEER LOOPER [address] [place] [address] [place], [place] [address] 10/09/2025 8:15 AM EDT Office Visit [facility] [address] [place] [address] Eben Ortiz, DO [address] [place] [address] documented as of this encounter Visit Diagnoses Not on filedocumented in this encounter Care Teams Printed Circuit Board Drafter Relationship Specialty Start Date End Date Gregg Lopez MD [address] [place] [address] [place] [address] PCP - General Internal Medicine 11/08/22 Gregg Lopez MD [address] [place] [address] [place] [address] PCP - Devoted 05/14/24 Neelima Rush LPN [address] [place] [address] [place] [address] 08/01/24 documented as of this encounter
--- OUTSIDE RECORDS SUMMARY | 2024-12-12 09:54 | XMS_ITS | Encounter Summary ---
Author Organization [facility] Address [address] [place] [address] Care Team Providers Care Turret Lathe Tender Name Role Phone Gregg Lopez MD Unavailable [phone] Gregg Lopez MD Primary Care Provider Gregg Lopez MD Unavailable [phone] Serena Huertas RN Unavailable [phone] Gregg Lopez MD Unavailable [phone] Neelima Rush LPN Unavailable Encounter Details Date Type Department Care Team (Late st Contact Info) Description 04/17/2023 Orders Only [facility] [address] [facility] 110 [place] [address] A, Unknown Practice [address] [place], [place] [phone] Social History Tobacco Use Types Packs/Day Years Used Date Smoking Tobacco: Never Smokeless Tobacco: Never Alcohol Use Standard Drinks/Week Comments Never 0 (1 standard drink = 0.6 oz pure alcohol) caffeine 1-2 cups/day; coffee, pop AUDIT-C Answer Date Recorded Q1: How often do you have a drink containing alc ohol? 2-4 times a month 03/15/2023 Average Number of Drinks Not on file 023 Frequency of Binge Drinking Not on [...] [address] [place] [address] [place] [address] Gregg Lopez MD [address] [place] [address] [place] [address] 02/16/2025 10:15 AM EDT Office Visit [facility] [place] [facility] [address] [place] [address] [place] [address] Gregg Lopez MD [address] [place] [address] [place] [address] 03/09/2025 10:50 AM EDT Office Visit [facility] [place] [facility] [address] [place] [address] Ivette Michelle, STATEMENT CLERK-FOOD SANITARIAN [address] [place] [place] [address] 10/09/2025 8:15 AM EDT Office Visit [facility] [address] [place] [address] Eben Ortiz, DO [address] [place] [address] documented as of this encounter Procedures Procedure Name Priority Date/Time Associated Diagnosis Comments SCANNED LABS Routine 04/16/2023 9:01 AM EST documented in this encounter Results * SCANNED LABS (04/16/2023 9:01 AM EST) us Unknown Practice A LAB CHG PERFORMABLES Final Re sult documented in this encounter Visit Diagnoses Not on filedocumented in this encounter Care Teams Turret Lathe Tender Relationship Specialty Start Date End Date Gregg Lopez MD [address] [place] [address] [place] [address] PCP - ACO Reach 10/05/22 06/19/24 Gregg Lopez MD [address] [place] [address] [place] [address] PCP - General Internal Medicine 11/08/22 Gregg Lopez MD [address] [place] [address] [place] [address] PCP - Devoted 05/14/24 Gregg Lopez MD [address] [place] [address] [place] [address] PCP - ACO Reach 06/27/24 08/14/24 Serena Huertas, RN [address] [place] [address] Clinical [facility] Family Medicine 06/20/24 08/01/24 Neelima Rush LPN [address] [place] [address] [place] [address] 08/01/24 documented as of this encounter
--- OUTSIDE RECORDS SUMMARY | 2024-12-12 09:54 | XMS_ITS | Encounter Summary ---
Author Organization [facility] Address [address] [place] [address] Care Team Providers Care Leasing Professional Name Role Phone Gregg Lopez MD Primary Care Provider [phone] Gregg Lopez MD Unavailable [phone] Neelima Rush LPN Unavailable Reason for Visit * Reason Onset Date Comments Med Refill 12/05/2024 Encounter Details Date Type Department Care Team (Late st Contact Info) Description 12/05/2024 Refill [facility] [address] [facility] 110 [place] [address] Serena Ferrari MA Mixed hyperlipidemia Social History Tobacco Use Types Packs/Day Years [...] week 04/25/2023 How often do you attend [facility] or confucianist services? 1 to 4 times per year 04/25/2023 Do you belong to any clubs o r organizations such as alevism groups, unions, fraternal or athletic groups, or [...] Recorded Patient Health Questionnaire-2 Score 0 10/08/2024 [facility] [place] of Occupat ional Health - Occupational Stress [...] Visit [facility] [place] [address] [facility] 110 [place] [address] Gregg Lopez MD [address] [facility] 110 [place] [address] 02/16/2025 10:15 AM EDT Office Visit [facility] [place] [address] [facility] 110 [place] [address] Gregg Lopez MD [address] [facility] 110 [place] [address] 03/09/2025 10:50 AM EDT Office Visit [facility] [place] [facility] [address] [place] [address] Ivette Michelle, SBA BUSINESS DEVELOPMENT OFFICER-RECLAMATION SUPERVISOR [address] [place] [address] 10/09/2025 8:15 AM EDT Office Visit [facility] [address] [place] [address] Eben Ortiz, [address] [place] [address] documented as of this encounter Visit Diagnoses Diagnosis Mixed hyperlipidemia Mixed hyperlipidemia documented in this encounter Care Teams Leasing Professional Relationship Specialty Start Date End Date Gregg Lopez MD [address] [facility] 110 [place] [address] PCP - General Internal Medicine 11/08/22 Gregg Lopez MD [address] [facility] 110 [place] [address] PCP - Devoted 05/14/24 Neelima Rush LPN [address] [facility] 110 [place] [address] 08/01/24 documented as of this encounter
--- OUTSIDE RECORDS SUMMARY | 2024-12-12 09:54 | XMS_ITS | Encounter Summary ---
Author Organization [facility] Address [address] [place] [address] Phone Care Team Providers Care Paleology Professor Name Role Phone Gregg Lopez MD Primary Care Provider Encounter Details Date Type Department Care Team (Late st Contact Info) Description 02/24/2021 Orders Only [email or web address] LEGACY [address] [place] [address] Conversion, Onbase Social History Tobacco Use Types [...] Description 12/18/2024 10:30 AM EDT Office Visit [place] [address] [place] [address] Walter Rain MD 703 [facility], [address] [place] [address] Scheduled Orders Name Type Priority Associated Diagnoses Orde r Schedule OUTSIDE LAB SCAN Lab Ordered: 02/24/2021 documented as of this encounter Visit Diagnoses Not on filedocumented in this encounter Care Teams Paleology Professor Relationship Specialty Start Date End Date Gregg Lopez MD [address] [place] [address] PCP - General 10/12/22 documented as of this encounter
--- OUTSIDE RECORDS SUMMARY | 2024-12-12 09:54 | XMS_ITS | Encounter Summary ---
Author Organization [facility] Address [address] [place] [address] Care Team Providers Care Medical Delivery Driver Name Role Phone Gregg Lopez MD Primary Care Provider [phone] Gregg oLpez MD Unavailable [phone] Neelima Rush LPN Unavailable Encounter Details Date Type Department Care Team (Late st Contact Info) Description 12/12/2024 Bamboo flowsheet [facility] [place] [facility] [address] [facility] 110 [place] [address] Gregg Lopez MD [address] [facility] 110 [place], [place] [address] Social History Tobacco Use Types Packs/Day Years [...] often do you attend chur ch or restoration services? 1 to 4 times per year 04/25/2023 Do you belong to any clubs o r organizations such as mandaeism groups, unions, fraternal or athletic groups, or [...] Recorded Patient Health Questionnaire-2 Score 0 12/12/2024 [facility] [place] of Occupat ional Health - Occupational Stress [...] Visit [facility] [place] [address] [facility] 110 [place] [address] Gregg Lopez MD [address] [place] [address] [place] [address] 02/16/2025 10:15 AM EDT Office Visit [facility] [place] [address] [place] [address] [place] [address] Gregg Lopez MD [address] [place] [address] [place] [address] 03/09/2025 10:50 AM EDT Office Visit [facility] [place] [facility] [address] [place] [address] Ivette Michelle, BOAT OPERATOR-MEDICAL ADMINISTRATIVE SPECIALIST [address] [place] [address] 10/09/2025 8:15 AM EDT Office Visit [facility] [address] [place] [address] Eben Ortiz, DO [address] [place] [address] documented as of this encounter Visit Diagnoses Not on filedocumented in this encounter Care Teams Medical Delivery Driver Relationship Specialty Start Date End Date Gregg Lopez MD [address] [facility] 110 [place] [address] PCP - General Internal Medicine 11/08/22 Gregg Lopez MD [address] [place] [address] PCP - Devoted 05/14/24 Neelima Rush LPN [address] [place] [address] 08/01/24 documented as of this encounter
--- OUTSIDE RECORDS SUMMARY | 2024-12-12 09:54 | XMS_ITS | Encounter Summary ---
Author Organization [facility] Address [address] [place] [address] Phone Care Team Providers Care Sales Agent Business Services Name Role Phone Gregg Lopez MD Primary Care Provider [phone] Encounter Details Date Type Department Care Team (Late st Contact Info) Description 05/20/2019 Orders Only [facility] LEGACY [address] [place] [address] Conversion, Onbase Social History Tobacco Use Types [...] Description 12/18/2024 10:30 AM EDT Office Visit [place] [address] [place] [address] Walter Rain MD 703 [facility] 2, [address] [place] [address] Scheduled Orders Name Type Priority Associated Diagnoses Orde r Schedule OUTSIDE LAB SCAN Lab Ordered: 05/20/2019 documented as of this encounter Visit Diagnoses Not on filedocumented in this encounter Care Teams Sales Agent Business Services Relationship Specialty Start Date End Date Gregg Lopez MD [address] [facility] 110 [place] [address] PCP - General 10/12/22 documented as of this encounter
--- OUTSIDE RECORDS SUMMARY | 2024-12-12 09:54 | XMS_ITS ---
Author Organization [facility] Address [address] [place] [address] Care Team Providers Care Lining Ironer Name Role Phone Gregg Lopez MD Primary Care Provider [phone] Gregg Lopez MD Unavailable [phone] Neelima Rush LPN Unavailable Chronic Care Management (CCM) Status:Enrolled (Active) Start date:08/12/2016 Enrollment date:08/12/2016 Overview 04/25/23, 2:00 PM - Funmisunday, SAMPLER TESTER- Patient gives verbal consent to be enrolled in CCM Program and understands there could be a bill for this service. Case Team Name Relationship Phone Neelima Rush LPN(Responsible Staff) [phone] Continued Care and Services Coordination
--- OUTSIDE RECORDS SUMMARY | 2024-12-12 09:54 | XMS_ITS | Encounter Summary ---
Author Organization [facility] Address [address] [place] [address] Care Team Providers Care Rn Iv Therapy Name Role Phone Gregg Lopez MD Unavailable [phone] Gregg Lopez MD Primary Care Provider [phone] Gregg Lopez MD Unavailable [phone] Serena Huertas RN Unavailable [phone] Gregg Lopez MD Unavailable [phone] Neelima Rush LPN Unavailable Encounter Details Date Type Department Care Team (Late st Contact Info) Description 06/19/2023 Orders Only [facility] [place] [facility] [address] [place] [address] Unallocated, Noms MD [place] [address] [place], [place] [address] Social History Tobacco Use Types Packs/Day Years [...] How often do you attend chur or taoist services? 1 to 4 times [...] and heating? Not hard at all 04/25/2023 [facility] [place] of Occupat ional Health - Occupational Stress [...] place to sleep or slept in a chcf (including now)? No 04/25/2023 Sex and Gender Information Value Date Recorded Sex Assigned at Not on file Legal Sex Male 6:36 PM EDT Gender Identity Not on file Sexual Orientation Not on file documented as of this encounter Plan of Treatment Upcoming Encounters Date Type Department Care Team (Late st Contact Info) Description 12/17/2024 10:30 AM EDT Office Visit [facility] [place] [facility] [address] [facility] 110 [place] [address] Gregg Lopez MD [address] [place] [address] [facility] 110 [place] [address] 02/16/2025 10:15 AM EDT Office Visit [facility] [place] [facility] [address] [facility] 110 [place] [address] Gregg Lopez MD [address] [place] [address] [place] [address] 03/09/2025 10:50 AM EDT Office Visit [facility] [place] [facility] [address] [place] [address] Ivette Michelle, COUPLES THERAPIST-DEBURRER STRIP [address] [place] [address] 10/09/2025 8:15 AM EDT Office Visit [facility] [address] [place] [address] Eben Ortiz, [address] [place] [address] documented as of this encounter Procedures Procedure Name Priority Date/Time Associated Diagnosis Comments SCANNED LABS Routine 06/18/2023 9:10 AM EST documented in this encounter Results * SCANNED LABS (06/18/2023 9:10 AM EST) us Noms Provider Unallocated LAB CHG PERFORMABLE S Final Result documented in this encounter Visit Diagnoses Not on filedocumented in this encounter Care Teams Rn Iv Therapy Relationship Specialty Start Date End Date Gregg Lopez MD [address] [facility] 110 [place] [address] PCP - ACO Reach 10/05/22 06/19/24 Gregg Lopez MD [address] [place] [address] PCP - General Internal Medicine 11/08/22 Gregg Lopez MD [address] [place] [address] PCP - Devoted 05/14/24 Gregg Lopez MD [address] [place] [address] PCP - ACO Reach 06/27/24 08/14/24 Sreena Huertas, [place] [address] [place], [place] [address] Clinical Advocate Family Medicine 06/20/24 08/01/24 Neelima Rush LPN [address] [address] 08/01/24 documented as of this encounter
--- OUTSIDE RECORDS SUMMARY | 2024-12-12 09:54 | XMS_ITS | Encounter Summary ---
Author Organization [facility] Address [address] [place] [address] Care Team Providers Care Pan Cleaner Name Role Phone Gregg Lopez MD Unavailable [phone] Gregg Lopez MD Primary Care Provider [phone] Gregg Lopez MD Unavailable [phone] Serena Huertas RN Unavailable Gregg Lopez MD Unavailable [phone] Neelima Rush LPN Unavailable Encounter Details Date Type Department Care Team (Late st Contact Info) Description 03/28/2023 Abstract [facility] [address] [facility] [place] [address] Cata Rudolph, PT 164 [place] [address] Social History Tobacco Use Types Packs/Day Years [...] [address] [place] [address] Gregg Lopez MD [address] [place] [address] 02/16/2025 10:15 AM EDT Office Visit [facility] [place] [facility] [address] [place] [address] Gregg Lopez MD [address] [place] [address] 03/09/2025 10:50 AM EDT Office Visit [facility] [place] [facility] [address] [place] [address] Ivette Michelle, CAR WORKER HELPER-ORGAN PIPE MAKER METAL [address] [place] [address] 10/09/2025 8:15 AM EDT Office Visit [facility] [address] [place] [address] Eben Ortiz, DO [address] [place] [address] documented as of this encounter Visit Diagnoses Not on filedocumented in this encounter Care Teams Pan Cleaner Relationship Specialty Start Date End Date Gregg Lopez MD [address] [place] [address] PCP - ACO Reach 10/05/22 06/19/24 Gregg Lopez MD [address] [facility] 110 [place] [address] PCP - General Internal Medicine 11/08/22 Gregg Lopez MD [address] [facility] 110 [place] [address] PCP - Devoted 05/14/24 Gregg Lopez MD [address] [facility] 110 [place] [address] PCP - ACO Reach 06/27/24 08/14/24 Serena Huertas, [place] [address] [place] [address] Clinical [facility] Family [facility] 06/20/24 08/01/24 Neelima Rush LPN [address] [facility] 110 [place] [address] 08/01/24 documented as of this encounter
--- OUTSIDE RECORDS SUMMARY | 2024-12-12 09:54 | XMS_ITS | Encounter Summary ---
Author Organization [facility] Address [address] [place] [address] Care Team Providers Care Welt Cutter Name Role Phone Gregg Lopez MD Primary Care Provider [phone] Gregg Lopez MD Unavailable [phone] Neelima Rush LPN Unavailable Encounter Details Date Type Department Care Team (Latest Contact Info) Description 12/12/2024 Travel Social History Tobacco Use Types Packs/Day Years [...] How often do you attend chur or nondenominational services? 1 to 4 times per year 04/25/2023 Do you belong to any clubs o r organizations such as jewish groups, unions, fraternal or athletic groups, or [...] Recorded Patient Health Questionnaire-2 Score 0 12/12/2024 [facility] of Occupat ional Health - Occupational [...] on file documented as of this encounter Functional Status * Over the [...] LP N documented as of this encounter Plan of Treatment Upcoming Encounters Date Type Department Care Team (Late st Contact Info) Description 12/17/2024 10:30 AM EDT Office Visit [facility] [place] [address] [facility] 110 [place] [address] Gregg Lopez MD [address] [facility] 110 [place], [place] [address] 02/16/2025 10:15 AM EDT Office Visit [facility] [place] [facility] [place] [address] [place] [address] [place] [address] Gregg Lopez MD [address] [place] [address] [place] [address] 03/09/2025 10:50 AM EDT Office Visit [facility] [place] [facility] [address] [place] [address] Ivette Michelle, DIESEL ENGINE ENGINEER-COMPUTER NETWORK SPECIALIST [address] [place] [place], [place] [address] 10/09/2025 8:15 AM EDT Office Visit [facility] [address] [place] [address] Eben Ortiz, DO [address] [place] [address] documented as of this encounter Visit Diagnoses Not on filedocumented in this encounter Care Teams Welt Cutter Relationship Specialty Start Date End Date Gregg Lopez MD [address] [place] [address] [place] [address] PCP - General Internal Medicine 11/08/22 Gregg Lopez MD [address] [place] [address] [place] [address] PCP - Devoted 05/14/24 Neelima Rush LPN [address] [place] [address] [place] [address] 08/01/24 documented as of this encounter
--- OUTSIDE RECORDS SUMMARY | 2024-12-12 09:54 | XMS_ITS | Encounter Summary ---
Author Organization [facility] Address [address] [place] [address] Care Team Providers Care Animal Warden Name Role Phone Gregg Lopez MD Primary Care Provider [phone] Gregg Lopez MD Unavailable [phone] Neelima Rush LPN Unavailable Encounter Details Date Type Department Care Team (Late st Contact Info) Description 09/22/2024 Abstract [facility] [place] [facility] 112 [facility] 110 [place] [address] Gregg Lopez MD 112 [facility] 110 [place], [place] [id number] Social History Tobacco Use Types Packs/Day Years [...] How often do you attend chur or buddhist services? 1 to 4 times per year 04/25/2023 Do you belong to any clubs o r organizations such as temple groups, unions, fraternal or athletic groups, or [...] Recorded Patient Health Questionnaire-2 Score 0 06/11/2024 [facility] [place] of Occupat ional Health - Occupational Stress [...] place to sleep or slept in a group home (including now)? No 04/25/2023 Sex and [...] Visit [facility] [place] [address] [facility] 110 [place] [address] Gregg Lopez MD [address] [facility] 110 [place] [address] 02/16/2025 10:15 AM EDT Office Visit [facility] [place] [address] [place] [address] [place] [phone] Gregg Lopez MD [address] [place] [address] [place] [address] 03/09/2025 10:50 AM EDT Office Visit [facility] [place] [facility] [address] [place] [address] Ivette Michelle, REGULATORY AFFAIRS INTERN-JAVA DEVELOPER [address] [place] [place], [place] [address] 10/09/2025 8:15 AM EDT Office Visit [facility] [address] [place] [address] Eben Ortiz, DO [address] [place] [address] documented as of this encounter Visit Diagnoses Not on filedocumented in this encounter Care Teams Animal Warden Relationship Specialty Start Date End Date Gregg Lopez MD [address] [place] [address] [place] [address] PCP - General Internal Medicine 11/08/22 Gregg Lopez MD [address] [place] [address] [place] [address] PCP - Devoted 05/14/24 Neelima Rush LPN [address] [place] [address] [place] [address] 08/01/24 documented as of this encounter
--- OUTSIDE RECORDS SUMMARY | 2024-12-12 09:54 | XMS_ITS | Encounter Summary ---
Author Organization [facility] Address [address] [place] [address] Care Team Providers Care Vortex Operator Name Role Phone Gregg Lopez MD Unavailable [phone] Gregg Lopez MD Primary Care Provider Gregg Lopez MD Unavailable [phone] Serena Huertas RN Unavailable [phone] Gregg oLpez MD Unavailable [phone] Neelima Rush LPN Unavailable Encounter Details Date Type Department Care Team (Late st Contact Info) Description 10/26/2022 Orders Only [facility] [place] [address] [place] [address] [place] [address] Gregg Lopez MD [address] [place] [address] [place] [address] Social History Tobacco Use Types Packs/Day Years [...] [address] [place] [address] [place] [address] Gregg Lopez MD [address] [place] [address] [place] [address] 02/16/2025 10:15 AM EDT Office Visit [facility] [place] [facility] [address] [place] [address] [place] [address] Gregg Lopez MD [address] [place] [address] [place] [address] 03/09/2025 10:50 AM EDT Office Visit [facility] [place] [facility] [address] [place] [address] Ivette Michelle APRN-MECHANICAL MAINTENANCE WORKER [address] [place] [address] 10/09/2025 8:15 AM EDT Office Visit [facility] [address] [place] [address] Eben Ortiz DO [address] [place] [address] documented as of this encounter Procedures Procedure Name Priority Date/Time Associated Diagnosis Comments SCANNED LABS Routine 10/26/2022 2:13 PM EDT documented in this encounter Results * SCANNED LABS (10/26/2022 2:13 PM EDT) us Gregg Lopez MD LAB CHG PERFORMABLES Final Res ult documented in this encounter Visit Diagnoses Not on filedocumented in this encounter Care Teams Vortex Operator Relationship Specialty Start Date End Date Gregg Lopez MD [address] [place] [address] [place] [address] PCP - ACO Reach 10/05/22 06/19/24 Gregg Lopez MD [address] [facility] 110 [place] [address] PCP - General Internal Medicine 11/08/22 Gregg Lopez MD [address] [facility] [place] [address] PCP - Devoted 05/14/24 Gregg Lopez MD [address] [facility] [address] PCP - ACO Reach 06/27/24 08/14/24 Serena Huertas, RN [address] [place], [place] [address] Clinical Advocate Family Medicine 06/20/24 08/01/24 Neelima Rush LPN [address] [facility] [place] [address] 08/01/24 documented as of this encounter
--- OUTSIDE RECORDS SUMMARY | 2024-12-12 09:54 | XMS_ITS | Encounter Summary ---
Author Organization [facility] Address [address] [place] [address] Care Team Providers Care Nursing Educator Name Role Phone Gregg Lopez MD Unavailable [phone] Gregg Lopez MD Primary Care Provider [phone] Gregg Lopez MD Unavailable [phone] Serena Huertas RN Unavailable [phone] Gregg Lopez MD Unavailable [phone] Neelima Rush LPN Unavailable Encounter Details Date Type Department Care Team (Late st Contact Info) Description 12/20/2022 [facility] [address] [facility] 110 [place] [address] Gregg Lopez MD [address] [facility] 110 [place], [place] [phone] Social History Tobacco Use Types Packs/Day Years Used Date Smoking Tobacco: Never Smokeless Tobacco: Never Alcohol Use Standard Drinks/Week Comments Never 0 (1 standard drink = 0.6 oz pur e alcohol) Sex and Gender Information Value Date Recorded [...] [address] [place] [address] Gregg Lopez MD [address] [place] [address] [place] [address] 02/16/2025 10:15 AM EDT Office Visit [facility] [place] [facility] [address] [place] [address] Gregg Lopez MD [address] [place] [address] [place] [address] 03/09/2025 10:50 AM EDT Office Visit [facility] [place] [facility] [address] [place] [address] Ivette Michelle, TIMBER SIZER-PHARMACEUTICAL PHYSICIAN [address] [place] [address] 10/09/2025 8:15 AM EDT Office Visit [facility] [address] [place] [address] Eben Ortiz, DO [address] [place], [place] [address] documented as of this encounter Visit Diagnoses Not on filedocumented in this encounter Care Teams Nursing Educator Relationship Specialty Start Date End Date Gregg Lopez MD [address] [place] [place] [address] PCP - ACO Reach 10/05/22 06/19/24 Gregg Lopez MD [address] [place] [place] [address] PCP - General Internal Medicine 11/08/22 Gregg Lopez MD [address] [place] [address] [place] [address] PCP - Devoted 05/14/24 Gregg Lopez MD [address] [place] [address] [place] [address] PCP - ACO Reach 06/27/24 08/14/24 Serena Huertas, DAV[place] [address] [place] [address] Clinical Advocate Family Medicine 06/20/24 08/01/24 Neelima Rush LPN [address] [place] [address] 08/01/24 documented as of this encounter
--- OUTSIDE RECORDS SUMMARY | 2024-12-12 09:55 | XMS_ITS | Encounter Summary ---
Author Organization [facility] Address [address] [place] [address] Phone Care Team Providers Care Warp Picker Name Role Phone Gregg Lopez MD Primary Care Provider [phone] Encounter Details Date Type Department Care Team (Late st Contact Info) Description 11/06/2023 Scanned Document [facility] [address] [place] [address] Scanning, Generic Provider Social History Tobacco Use Types Packs/Day Years [...] Description 12/18/2024 10:30 AM EDT Office Visit [place] [address] [place] [address] Walter Rain MD [address] [facility] [address], [address] [place] [address] Scheduled Orders Name Type Priority Associated Diagnoses Orde r Schedule Ultrasound- OnBase Scan Imaging O rdered: 11/06/2023 documented as of this encounter Visit Diagnoses Not on filedocumented in this encounter Additional Health Concerns Assessment Noted Time A fall risk assessment has been complete d for the patient 04/13/2023 11:22 AM EST documented as of this encounter Care Teams Warp Picker Relationship Specialty Start Date End Date Gregg Lopez MD [address] [facility] 110 [place] [address] PCP - General 10/12/22 documented as of this encounter
--- OUTSIDE RECORDS SUMMARY | 2024-12-12 09:55 | XMS_ITS | Clinical Summary ---
Author Organization [facility] Address [address] [place] [address] Phone Care Team Providers Care Matchbook Assembler Name Role Phone Gregg Lopez MD Primary Care Provider [phone] Allergies No known active allergies Medications allopurinol (Zyloprim) 300 mg tablet Take 0.5 tablets (150 mg) by mouth once daily. Active aspirin 81 mg EC tablet Take 1 tablet (81 mg) by mouth 2 times a week. 2 Active atorvastatin (Lipitor) 80 mg tablet Take 1 tablet (80 mg) by mouth once daily at bedtime. Active doxycycline (Vibramycin) 100 mg capsule Take 1 capsule (100 mg) by mouth once daily. 2 Active finasteride (Proscar) 5 mg tablet Take 1 tablet (5 mg) by mouth once daily. Active ipratropium (Atrovent) 0.02 % nebulizer solution Take 2.5 mL (0.5 mg) by nebulization 2 times a day. Active levothyroxine (Synthroid, Levoxyl) 100 mcg tablet Take 1 tablet (100 mcg) by mouth once daily. Active lisinopril 10 mg tablet Take 1 tablet (10 mg) by mouth once daily. 3 Active nitroglycerin (Nitrostat) 0.[address] 1 tablet (0.4 mg) under the tongue every 5 minutes if needed. Active omeprazole (PriLOSEC) [address] capsule Take 1 capsule (40 mg) by mouth once daily in the morning. Take before meals. 2 Active coenzyme Q-10 200 mg capsule Take 1 capsule (200 mg) by mouth once daily. Active nebivolol (Bystolic) 5 mg tablet Take 1 tablet (5 mg) by mouth once daily. Active flaxseed oil-omega 3,6,9 1,300 mg-845 mg -117 mg-117 mg capsule Take 1 tablet by mouth once daily. Active psyllium (Metamucil) 3.4 gram packet Take 1 packet by mouth once daily. Active Travel-Ease, meclizine, 25 mg tablet Take 1 tablet (25 mg) by mouth every 8 hours if needed for dizziness. 4 Active rivaroxaban (Xarelto) 20 mg tabletIndication s:Paroxysmal atrial fibrillation (Multi) Take 1 tablet (20 mg) by mouth once daily in the evening. Take with meals. Take with food. 90 tablet 3 5 026 Active Active Problems Problem Noted Date Diagnosed Date BMI 26.0-26.9,adult 11/21/2023 High risk medication use 11/21/2023 Never smoked tobacco 11/21/2023 Internal hemorrhoids 04/13/2023 Permanent atrial fibrillation (Multi) 04/13/2023 Angina pectoris 04/12/2023 Arteriosclerosis of coronary artery 04/12/2023 Esophageal dysphagia 04/12/2023 Essential hypertension, benign 04/12/2023 Hoarseness 04/12/2023 Hyperkalemia 04/12/2023 Hyperlipidemia 04/12/2023 Mitral regurgitation 04/12/2023 Pacemaker 04/12/2023 Paroxysmal atrial fibrillation (Multi) 3 Sick sinus syndrome (Multi) 04/12/2023 Status post coronary angioplasty 04/12/2023 Stage 3 chronic kidney disease (Multi) 3 Unilateral vocal cord paralysis 04/12/2023 Immunizations Immunization Administration Dates Next Due Flu vaccine, quadrivalent, h igh-dose, preservative free, age 65y+ (FLUZONE) 03/01/2023,02/27/2019 Flu vaccine, trivalent, pres ervative free, HIGH-DOSE, age 65y+ (Fluzone) 02/25/2024,03/24/2021,02/05/2020,02/24,02/05/2018,01/30/2018,01/30/2017 ,02/16/2016 Flu vaccine, trivalent, pres ervative free, age 6 months and greater (Fluarix/Fluzone/Flulaval) 01/11/2015 Influenza Whole 02/11/2014 Influenza, Seasonal, Quadriv alent, Adjuvanted 02/28/2022 Influenza, injectable, quadrivalent 02/21/2016 Influenza, seasonal, injectable 02/14/2020,03/27 Influenza, seasonal, intrade rmal, preservative free 03/11/2014 Pneumococcal conjugate vacci ne, 13-valent (PREVNAR 13) 01/27/2019 Pneumococcal conjugate vacci ne, 20-valent (PREVNAR 20) 01/24/2022 Pneumococcal polysaccharide vaccine, 23-valent, age 2 years and older (PNEUMOVAX 23) 01/30/2019,03/27/2016,06/14/2015,02/11,05/14/2011,01/12/2010 RSV, 60 Years And Older (AREXVY) 06/17/2024 Zoster, live 01/22/2014,08/15/2013 Family History Medical History Relation Name Comments Cancer Brother Relation Name Status Comments Brother Social History Tobacco Use Types Packs/Day Years Used Date Smoking Tobacco: Never Smokeless Tobacco: Never Tobacco Cessation:Counseling Given: Not Answered Alcohol Use Standard Drinks/Week Comments Never 0 (1 standard drink = 0.6 oz pur e alcohol) very rare Sex and Gender Information Value Date Recorded Sex Assigned at Not on file Legal Sex Male 4:05 PM EST Gender Identity Not on file Sexual Orientation Not on file Last Filed Vital Signs Vital Sign Reading Time Taken Comments Blood Pressure 116/48 07/02/2024 10:09 AM EST Pulse 68 07/02/2024 10:09 AM EST Temperature 36.1 C (97 F) 12/12/2021 2:54 PM EDT Respiratory Rate - - Oxygen Saturation - - Inhaled Oxygen Concentration - - Weight 79.4 kg (175 lb) 07/02/2024 10:09 AM EST Height 172.7 cm (5' 8 ) 07/02/2024 10:09 AM EST Body Mass Index 26.61 07/02/2024 10:09 AM EST Plan of Treatment Upcoming Encounters Date Type Department Care Team (Late st Contact Info) Description 12/18/2024 10:30 AM EDT Office Visit [place] [address] [place] [address] Walter Rain MD 703 [facility] 2, [address] [place] [address] Health Maintenance Due Date Last Done Comments Lipid Panel 1935 TSH Level 1935 Diabetes Screening 10/02/1955 DTaP/Tdap/Td Vaccines (1 - Tdap) 10/02/1959 Zoster Vaccines (2 of 3) 03/19/2014 01/22/2014, 08/2013 CKD: Urine Protein Screening 01/20/2022 01/20/2021 COVID-19 Vaccine ( season) 2024 Medicare Annual Wellness Visit (AWV) 03/02/2024 03/01/2023, 01/23/2022, 01/20/2021, Additional history exists Influenza Vaccine (#1) 2025 , 03/01/2023, 02/28/2022, Additional history exists Diabetes: Urine Protein Screening Discontinued 01/20/2021 Pneumococcal Vaccine Completed 01/24/2022, 01/30/2019, 01/27/2019, Additional history exists RSV High Risk: (Elderly (60+) or Population) Completed 06/17/2024 HIB Vaccines Aged Out No longer eligi ble based on patient's age to complete this topic HPV Vaccines Aged Out No longer eligi ble based on patient's age to complete this topic Hepatitis A Vaccines Aged Out No long er eligible based on patient's age to complete this topic Hepatitis B Vaccines Aged Out No long er eligible based on patient's age to complete this topic IPV Vaccines Aged Out No longer eligi ble based on patient's age to complete this topic Meningococcal Vaccine Aged Out No juanita adore eligible based on patient's age to complete this topic Rotavirus Vaccines Aged Out No longer eligible based on patient's age to complete this topic Insurance Ceannate Care Teams Matchbook Assembler Relationship Specialty Start Date End Date Gregg Lopez MD [address] [facility] 110 [place] [address] PCP - General 10/12/22
--- OUTSIDE RECORDS SUMMARY | 2024-12-12 09:55 | XMS_ITS | Encounter Summary ---
Author Organization [facility] Address [address] [place] [address] Care Team Providers Care Nuclear Criticality Safety Engineer Name Role Phone Gregg Lopez MD Unavailable [phone] Gregg Lopez MD Primary Care Provider Gregg Lopez MD Unavailable [phone] Serena Huertas RN Unavailable Gregg Lopez MD Unavailable [phone] Neelima Rush LPN Unavailable Encounter Details Date Type Department Care Team (Late st Contact Info) Description 11/09/2022 [facility] [address] [facility] 110 [place] [address] Gregg Lopez MD [address] [facility] 110 [place], [place] [id number] Social History Tobacco Use Types Packs/Day Years [...] [address] [place] [address] Gregg Lopez MD [address] [place] [address] 02/16/2025 10:15 AM EDT Office Visit [facility] [place] [facility] [address] [place] [address] Gregg Lopez MD [address] [place] [address] 03/09/2025 10:50 AM EDT Office Visit [facility] [place] [facility] [address] [place] [address] Ivette Michelle, RN MEDICATION-CHISEL WORKER [address] [place] [address] 10/09/2025 8:15 AM EDT Office Visit [facility] [address] [place] [address] Eben Ortiz, DO [address] [place], [place] [address] documented as of this encounter Visit Diagnoses Not on filedocumented in this encounter Care Teams Nuclear Criticality Safety Engineer Relationship Specialty Start Date End Date Gregg Lopez MD [address] [place] [address] PCP - ACO Reach 10/05/22 06/19/24 Gregg Lopez MD [address] [place] [address] PCP - General Internal Medicine 11/08/22 Gregg Lopez MD [address] [place] [address] PCP - Devoted 05/14/24 Gregg Lopez MD [address] [place] [address] [place] [address] PCP - ACO Reach 06/27/24 08/14/24 Serena Huertas, DAVID [address] [place] [address] Clinical Advocate Family Medicine 06/20/24 08/01/24 Neelima Rush LPN [address] [place] [address] 08/01/24 documented as of this encounter
--- OUTSIDE RECORDS SUMMARY | 2024-12-12 09:55 | XMS_ITS | Encounter Summary ---
Author Organization [facility] Address [address] [place] [address] Phone Care Team Providers Care Youth Accommodation Support Worker Name Role Phone Gregg Lopez MD Primary Care Provider [phone] Encounter Details Date Type Department Care Team (Late st Contact Info) Description 10/30/2022 Orders Only [facility] [address] [place] [address] Conversion, Onbase Social History Tobacco Use Types [...] Description 12/18/2024 10:30 AM EDT Office Visit [place] [address] [place] [address] Walter Rain MD [facility] 2, [address] [place] [address] Scheduled Orders Name Type Priority Associated Diagnoses Orde r Schedule OUTSIDE LAB SCAN Lab Ordered: 10/30/2022 documented as of this encounter Visit Diagnoses Not on filedocumented in this encounter Care Teams Youth Accommodation Support Worker Relationship Specialty Start Date End Date Gregg Lopez MD [address] [place] [address] PCP - General 10/12/22 documented as of this encounter
--- OUTSIDE RECORDS SUMMARY | 2024-12-12 09:55 | XMS_ITS | Encounter Summary ---
Author Organization [facility] Address [address] [place] [address] Care Team Providers Care Librarian Helper Name Role Phone Gregg Lopez MD Unavailable [phone] Gregg Lopez MD Primary Care Provider Gregg Lopez MD Unavailable [phone] Serena Huertas RN Unavailable Gregg Lopez MD Unavailable [phone] Neelima Rush LPN Unavailable Encounter Details Date Type Department Care Team (Late st Contact Info) Description 11/09/2022 [facility] [address] [facility] 110 [place] [address] Gregg Lopez MD [address] [facility] 110 [place], [place] [address] Social History Tobacco Use Types Packs/Day Years [...] [address] [place] [address] Gregg Lopez MD [address] [place] [address] 02/16/2025 10:15 AM EDT Office Visit [facility] [place] [facility] [address] [place] [address] Gregg Lopez MD [address] [place] [address] 03/09/2025 10:50 AM EDT Office Visit [facility] [place] [facility] [address] [place] [address] Ivette Michelle, POWER DISTRIBUTION ENGINEER-TYPECASTING MACHINE OPERATOR [address] [place] [address] 10/09/2025 8:15 AM EDT Office Visit [facility] [address] [place] [address] Eben Ortiz, DO [address] [place], [place] [id number] documented as of this encounter Visit Diagnoses Not on filedocumented in this encounter Care Teams Librarian Helper Relationship Specialty Start Date End Date Gregg Lopez MD [address] [place] [address] PCP - ACO Reach 10/05/22 06/19/24 Gregg Lopez MD [address] [place] [address] PCP - General Internal Medicine 11/08/22 Gregg Lopez MD [address] [place] [address] PCP - Devoted 05/14/24 Gregg Lopez MD [address] [place] [address] [place] [address] PCP - ACO Reach 06/27/24 08/14/24 Serena Huertas, DAVID [address] [place] [address] Clinical Advocate Family Medicine 06/20/24 08/01/24 Neelima Rush LPN [address] [place] [address] 08/01/24 documented as of this encounter
--- OUTSIDE RECORDS SUMMARY | 2024-12-12 09:55 | XMS_ITS | Encounter Summary ---
Author Organization [facility] Address [address] [place] [address] Care Team Providers Care Cork Compounder Name Role Phone Gregg Lopez MD Unavailable [phone] Gregg Lopez MD Primary Care Provider Gregg Lopez MD Unavailable [phone] Serena Huertas RN Unavailable [phone] Gregg Lopez MD Unavailable [phone] Neelima Rush LPN Unavailable Encounter Details Date Type Department Care Team (Late st Contact Info) Description 03/19/2023 Abstract [facility] [address] [place] [address] Monique Oliva MA Social History Tobacco Use Types Packs/Day Years [...] [address] [place] [address] Gregg Lopez MD [address] [place] [address] 02/16/2025 10:15 AM EDT Office Visit [facility] [place] [facility] [address] [place] [address] Gregg Lopez MD [address] [place] [address] 03/09/2025 10:50 AM EDT Office Visit [facility] [place] [facility] [address] [place] [address] Ivette Michelle, DISH STACKER-GREENS OR GROUNDS SUPERINTENDENT [address] [place] [address] 10/09/2025 8:15 AM EDT Office Visit [facility] [address] [place] [address] Eben Ortiz, DO [address] [place] [address] documented as of this encounter Visit Diagnoses Not on filedocumented in this encounter Care Teams Cork Compounder Relationship Specialty Start Date End Date Gregg Lopez MD [address] [place] [address] PCP - ACO Reach 10/05/22 06/19/24 Gregg Lopez MD [address] [place] [address] PCP - General Internal Medicine 11/08/22 Gregg Lopez MD [address] [facility] 110 [place] [address] PCP - Devoted 05/14/24 Gregg Lopez MD [address] [facility] 110 [place] [address] PCP - ACO Reach 06/27/24 08/14/24 Serena Huertas, RN [address] [place], [place] [address] Clinical [facility] Family [facility] 06/20/24 08/01/24 Neelima Rush LPN [address] [facility] 110 [place] [address] 08/01/24 documented as of this encounter
--- OUTSIDE RECORDS SUMMARY | 2024-12-12 09:55 | XMS_ITS | Encounter Summary ---
Author Organization [facility] Address [address] [place] [address] Care Team Providers Care Automotive Quality Engineer Name Role Phone Gregg Lopez MD Unavailable [phone] Gregg Lopez MD Primary Care Provider Gregg Lopez MD Unavailable [phone] Serena Huertas RN Unavailable Gregg Lopez MD Unavailable [phone] Neelima Rush LPN Unavailable Encounter Details Date Type Department Care Team (Late st Contact Info) Description 02/28/2023 Abstract [facility] [address] [facility] [address] Cata Rudolph, PT 164 [place] [address] Social History Tobacco Use Types Packs/Day Years [...] pleasure in doing things Not at all 03/01/2023 9:00 AM EDT Lisa Chaudhari LP N Feeling down, depressed, or hopeless Not at all 03/01/2023 9:00 AM EDT Lisa Chaudhari LP N Patient Health Questionnaire -2 Score 0 03/01/2023 9:00 AM EDT Lisa Chaudhari LP N documented as of this encounter Plan of Treatment Upcoming Encounters Date Type Department Care Team (Late st Contact Info) Description 12/17/2024 10:30 AM EDT [facility] [place] [facility] [address] [place] [address] Gregg Lopez MD [address] [place] [address] 02/16/2025 10:15 AM EDT [facility] [place] [facility] [address] [place] [address] Gregg Lopez MD [address] [place] [address] 03/09/2025 10:50 AM EDT Office Visit [facility] [place] [facility] [address] [place] [address] Ivette Michelle, MANAGER POKER-DIAMOND GRADER [address] [place] [address] 10/09/2025 8:15 AM EDT Office Visit [facility] [address] [place] [address] Eben Ortzi DO [address] [place] [address] documented as of this encounter Visit Diagnoses Not on filedocumented in this encounter Care Teams Automotive Quality Engineer Relationship Specialty Start Date End Date Gregg Lopez MD [address] [facility] 110 [place] [address] PCP - ACO Reach 10/05/22 06/19/24 Gregg Lopez MD [address] [facility] 110 [place] [address] PCP - General Internal Medicine 11/08/22 Gregg Lopez MD [address] [facility] 110 [place] [address] PCP - Devoted 05/14/24 Gregg Lopez MD [address] [facility] [place] [address] PCP - ACO Reach 06/27/24 08/14/24 Serena Huertas, DAVID [address] [place] [address] Clinical Advocate Family Medicine 06/20/24 08/01/24 Neelima Ruhs LPN [address] [facility] [place] [address] 08/01/24 documented as of this encounter
--- OUTSIDE RECORDS SUMMARY | 2024-12-12 09:55 | XMS_ITS | Encounter Summary ---
Author Organization [facility] Address [address] [place] [address] Care Team Providers Care Beauty Operator Apprentice Name Role Phone Gregg Lopez MD Unavailable [phone] Gregg Lopez MD Primary Care Provider Gregg Lopez MD Unavailable [phone] Serena Huertas RN Unavailable [phone] Gregg Lopez MD Unavailable [phone] Neelima Rush LPN Unavailable Encounter Details Date Type Department Care Team (Late st Contact Info) Description 11/09/2022 Abstract [facility] [address] [facility] 110 [place] [address] Gregg Lopez MD [address] [facility] 110 [place], [place] [address] Social History Tobacco Use Types Packs/Day Years [...] [address] [place] [address] Gregg Lopez MD [address] [place] [address] 02/16/2025 10:15 AM EDT Office Visit [facility] [place] [facility] [address] [place] [address] Gregg Lopez MD [address] [place] [address] 03/09/2025 10:50 AM EDT Office Visit [facility] [place] [facility] [address] [place] [address] Ivette Michelle, LEAD ESTHETICIAN-DIRECTOR FRAUD [address] [place] [address] 10/09/2025 8:15 AM EDT Office Visit [facility] [address] [place] [address] Eben Ortiz, DO [address] [place], [place] [address] documented as of this encounter Visit Diagnoses Not on filedocumented in this encounter Care Teams Beauty Operator Apprentice Relationship Specialty Start Date End Date Gregg Lopez MD [address] [place] [address] PCP - ACO Reach 10/05/22 06/19/24 Gregg Lopez MD [address] [place] [address] PCP - General Internal Medicine 11/08/22 Gregg Lopez MD [address] [place] [address] PCP - Devoted 05/14/24 Gregg Lopez MD [address] [place] [address] [place] [address] PCP - ACO Reach 06/27/24 08/14/24 Serena Huertas, DAVID [address] [place] [address] Clinical Advocate Family Medicine 06/20/24 08/01/24 Neelima Rush LPN [address] [place] [address] 08/01/24 documented as of this encounter
--- OUTSIDE RECORDS SUMMARY | 2024-12-12 09:55 | XMS_ITS | Encounter Summary ---
Author Organization [facility] Address [address] [place] [address] Care Team Providers Care Quantitative Associate Name Role Phone Gregg Lopez MD Unavailable [phone] Gregg Lopez MD Primary Care Provider Gregg Lopez MD Unavailable [phone] Serena Huertas RN Unavailable Gregg Lopez MD Unavailable [phone] Neelima Rush LPN Unavailable Encounter Details Date Type Department Care Team (Late st Contact Info) Description 11/07/2023 Abstract [facility] 112 [facility] 110 [place] [address] Gregg Lopez MD [address] [facility] 110 [place], [place] [phone] Social History Tobacco Use Types Packs/Day Years [...] How often do you attend chur or jehovah's witness services? 1 to 4 times per year 04/25/2023 Do you belong to any clubs o r organizations such as episcopalian groups, unions, fraternal or athletic groups, or [...] and heating? Not hard at all 04/25/2023 [facility] [place] [facility] Occupat ional Health - Occupational Stress [...] Visit [facility] [place] [address] [facility] 110 [place] [address] Gregg Lopez MD [address] [facility] 110 [place] [address] 02/16/2025 10:15 AM EDT Office Visit [facility] [place] [facility] [address] [place] [address] Gregg Lopez MD [address] [facility] 110 [place] [address] 03/09/2025 10:50 AM EDT Office Visit [facility] [place] [facility] [address] [place] [address] Ivette Michelle, DETASSELING CREW SUPERVISOR-CUSTOMER SERVICE REPRESENTATIVE TELLER [address] [place] [address] 10/09/2025 8:15 AM EDT Office Visit [facility] [address] [place] [address] Eben Ortiz, DO [address] [place] [address] documented as of this encounter Visit Diagnoses Not on filedocumented in this encounter Care Teams Quantitative Associate Relationship Specialty Start Date End Date Gregg Lopez MD [address] [place] [address] PCP - ACO Reach 10/05/22 06/19/24 Gregg Lopez MD [address] [facility] 110 [place] [address] PCP - General Internal Medicine 11/08/22 Gregg Lopez MD [address] [place] [address] PCP - Devoted 05/14/24 Gregg Lopez MD [address] [place] [address] PCP - ACO Reach 06/27/24 08/14/24 Serena Huertas, RN [address] [place] [address] Clinical Advocate Family Medicine 06/20/24 08/01/24 Neelima Rush LPN 112 [facility] 110 [place] [address] 08/01/24 documented as of this encounter
--- OUTSIDE RECORDS SUMMARY | 2024-12-12 09:55 | XMS_ITS | Encounter Summary ---
Author Organization [facility] Address [address] [place] [address] Phone Care Team Providers Care Compressor Station Engineer Name Role Phone Gregg Lopez MD Primary Care Provider [phone] Encounter Details Date Type Department Care Team (Late st Contact Info) Description 06/18/2023 Scanned Document [facility] [address] [place] [address] Scanning, Generic Provider Social History [...] Description 12/18/2024 10:30 AM EDT Office Visit [facility] [address] [place] [address] Walter Rain MD [address] [facility] [address] [place] [address] documented as of this encounter Visit Diagnoses Not on filedocumented in this encounter Additional Health Concerns Assessment Noted Time A fall risk assessment has been complete d for the patient 04/13/2023 11:22 AM EST documented as of this encounter Care Teams Compressor Station Engineer Relationship Specialty Start Date End Date Gregg Lopez MD [address] [place] [address] PCP - General 10/12/22 documented as of this encounter
--- OUTSIDE RECORDS SUMMARY | 2024-12-12 09:55 | XMS_ITS | Encounter Summary ---
Author Organization [facility] Address [address] [place] [address] Care Team Providers Care Electronics Engineering Manager Name Role Phone Gregg Lopez MD Unavailable [phone] Gregg Lopez MD Primary Care Provider Gregg Lopez MD Unavailable [phone] Serena Huertas RN Unavailable Gregg Lopez MD Unavailable [phone] Neelima Rush LPN Unavailable Encounter Details Date Type Department Care Team (Late st Contact Info) Description 11/09/2022 Abstract [facility] [address] [facility] 110 [place] [address] Gregg Lopez MD [address] [facility] 110 [place], [place] [address] Social History Tobacco Use Types Packs/Day Years [...] [address] [place] [address] Gregg Lopez MD [address] [place] [address] 02/16/2025 10:15 AM EDT Office Visit [facility] [place] [facility] [address] [place] [address] Gregg Lopez MD [address] [place] [address] 03/09/2025 10:50 AM EDT Office Visit [facility] [place] [facility] [address] [place] [address] Ivette Michelle, PRICING DIRECTOR-CARDIAC CATHETERIZATION TECHNOLOGIST [address] [place] [address] 10/09/2025 8:15 AM EDT Office Visit [facility] [address] [place] [address] Eben Ortiz, DO [address] [place], [place] [address] documented as of this encounter Visit Diagnoses Not on filedocumented in this encounter Care Teams Electronics Engineering Manager Relationship Specialty Start Date End Date Gregg Lopez MD [address] [place] [address] PCP - ACO Reach 10/05/22 06/19/24 Gregg Lopez MD [address] [place] [address] PCP - General Internal Medicine 11/08/22 Gregg Lopez MD [address] [place] [address] PCP - Devoted 05/14/24 Gregg Lopez MD [address] [place] [address] [place] [address] PCP - ACO Reach 06/27/24 08/14/24 Serena Huertas, DAVID [address] [place] [address] Clinical Advocate Family Medicine 06/20/24 08/01/24 Neelima Rush LPN [address] [place] [address] 08/01/24 documented as of this encounter
--- OUTSIDE RECORDS SUMMARY | 2024-12-12 09:55 | XMS_ITS | Encounter Summary ---
Author Organization [facility] Address [address] [place] [address] Care Team Providers Care Screen Handler Name Role Phone Gregg Lopez MD Unavailable [phone] Gregg Lopez MD Primary Care Provider [phone] Gregg Lopze MD Unavailable [phone] Serena Huertas RN Unavailable Gregg Lopez MD Unavailable [phone] Neelima Rush LPN Unavailable Encounter Details Date Type Department Care Team (Late st Contact Info) Description 03/19/2023 Abstract [facility] Otolaryngology [address] [place] [address] Bg Fu, [address] [place] [address] Social History Tobacco Use Types Packs/Day Years [...] [address] [place] [address] Gregg Lopez MD [address] [place] [address] 02/16/2025 10:15 AM EDT Office Visit [facility] [place] [facility] [address] [place] [address] Gregg Lopez MD [address] [place] [address] 03/09/2025 10:50 AM EDT Office Visit [facility] [place] [facility] [address] [place] [address] Ivette Michelle, LOCUM TENENS PSYCHIATRIST-MANAGEMENT LEAD [address] [place] [address] 10/09/2025 8:15 AM EDT Office Visit [facility] [address] [place] [address] Eben Ortiz, [address] [place] [address] documented as of this encounter Visit Diagnoses Not on filedocumented in this encounter Care Teams Screen Handler Relationship Specialty Start Date End Date Gregg Lopez MD [address] [place] [address] PCP - ACO Reach 10/05/22 06/19/24 Gregg Lopez MD [address] [place] [address] PCP - General Internal Medicine 11/08/22 Gregg Lopez MD [address] [facility] 110 [place] [address] PCP - Devoted 05/14/24 Gregg Lopez MD [address] [facility] 110 [place] [address] PCP - ACO Reach 06/27/24 08/14/24 Serena Huertas, RN [address] [place] [address] Clinical [facility] Family Medicine 06/20/24 08/01/24 Neelima Rush LPN [address] [facility] 110 [place] [address] 08/01/24 documented as of this encounter
--- OUTSIDE RECORDS SUMMARY | 2024-12-12 09:55 | XMS_ITS | Encounter Summary ---
Author Organization [facility] Address [address] [place] [address] Care Team Providers Care Deputy Attorney General Name Role Phone Gregg Lopez MD Unavailable [phone] Gregg Lopez MD Primary Care Provider Gregg Lopez MD Unavailable [phone] Serena Huertas RN Unavailable [phone] Gregg Lopez MD Unavailable [phone] Neelima Rush LPN Unavailable Encounter Details Date Type Department Care Team (Late Contact Info) Description 11/09/2022 Orders Only [facility] [address] [place] [address] Nolan Henry DO [address] [place] [address] Social History Tobacco Use Types Packs/Day Years [...] AM EDT Office Visit [facility] [place] [facility] [address] [place] [address] Gregg Lopez MD [address] [place] [address] 02/16/2025 10:15 AM EDT Office Visit [facility] [place] [facility] [address] [place] [address] Gregg Lopez MD [address] [place] [address] 03/09/2025 10:50 AM EDT Office Visit [facility] [place] [facility] [address] [place] [address] Ivette Michelle, SURGICAL ASST-TANYARD WORKER [address] [place] [address] 10/09/2025 8:15 AM EDT Office Visit [facility] [address] [place] [address] Eben Ortiz, [address] [place] [address] documented as of this encounter Procedures Procedure Name Priority Date/Time Associated Diagnosis Comments US CAROTID DOPPLER RIGHT Routine 023 10:14 AM EDT SCANNED LABS Routine 10/31/2022 10:20 AM EDT US GI ENDOSCOPIC Routine 10/30/2022 10:1 8 AM EDT SCANNED LABS Routine 10/30/2022 10:11 AM EDT documented in this encounter Results * Ultrasound Carotid Doppler Right (11/06/2022 10:14 AM EDT) Anatomical Region Laterality Modality Head and Neck Ultrasound us Tnaiya Terrazas MD IMG US PROCEDURES Final Result * SCANNED LABS (10/31/2022 10:20 AM EDT) us Jair Dugan MD LAB CHG PERFORMABLES Final Resul t * US GI endoscopic (10/30/2022 10:18 AM EDT) Anatomical Region Laterality Modality Body Ultrasound us Unknown Practice A IMG US PROCEDURES Final Resul t * SCANNED LABS (10/30/2022 10:11 AM EDT) us Nolan Henry LAB CHG PERFORMABLES Final Resul t documented in this encounter Visit Diagnoses Not on filedocumented in this encounter Care Teams Deputy Attorney General Relationship Specialty Start Date End Date Gregg Lopez MD [address] [place] [address] PCP - ACO Reach 10/05/22 06/19/24 Gregg Lopez MD [address] [place] [address] PCP - General Internal Medicine 11/08/22 Gregg Lopez MD [address] [place] [address] PCP - Devoted 05/14/24 Gregg Lopez MD [address] [place] [address] PCP - ACO Reach 06/27/24 08/14/24 Serena Huertas, RN [address] [place] [address] Clinical [facility] Family [facility] 06/20/24 08/01/24 Neelima Rush LPN [address] [place] [address] 08/01/24 documented as of this encounter
--- OUTSIDE RECORDS SUMMARY | 2024-12-12 09:55 | XMS_ITS | Encounter Summary ---
Author Organization [facility] Address [address] [place] [address] Care Team Providers Care It Support Manager Name Role Phone Gregg Lopez MD Unavailable [phone] Gregg Lopez MD Primary Care Provider Gregg Lopez MD Unavailable [phone] Serena Huertas RN Unavailable Gregg Lopez MD Unavailable [phone] Neelima Rush LPN Unavailable Encounter Details Date Type Department Care Team (Late st Contact Info) Description 12/01/2022 Abstract [facility] [address] [facility] [place] [address] Cata Rudolph, PT 164 [place] [address] Social History Tobacco Use Types Packs/Day Years [...] [address] [place] [address] Gregg Lopez MD [address] [place] [address] 02/16/2025 10:15 AM EDT Office Visit [facility] [place] [facility] [address] [place] [address] Gregg Lopez MD [address] [place] [address] 03/09/2025 10:50 AM EDT Office Visit [facility] [place] [facility] [address] [place] [address] Ivette Michelle, BIOINFORMATICIST-RETURN TO SERVICE INSPECTOR [address] [place] [address] 10/09/2025 8:15 AM EDT Office Visit [facility] [address] [place] [address] Eben Ortiz DO [address] [place] [address] documented as of this encounter Visit Diagnoses Not on filedocumented in this encounter Care Teams It Support Manager Relationship Specialty Start Date End Date Gregg Lopez MD [address] [place] [address] PCP - ACO Reach 10/05/22 06/19/24 Gregg Lopez MD [address] [place] [address] PCP - General Internal Medicine 11/08/22 Gregg Lopez MD [address] [place] [address] PCP - Devoted 05/14/24 Gregg Lopez MD [address] [place] [address] [place] [address] PCP - ACO Reach 06/27/24 08/14/24 Serena Huertas, DAVID [address] [place] [address] Clinical [facility]ocate Family Medicine 06/20/24 08/01/24 Neelima Rush LPN [address] [place] [address] 08/01/24 documented as of this encounter
--- OUTSIDE RECORDS SUMMARY | 2024-12-12 09:55 | XMS_ITS | Encounter Summary ---
Author Organization [facility] Address [address] [place] [address] Care Team Providers Care Institutional Nutrition Consultant Name Role Phone Gregg Lopez MD Unavailable [phone] Gregg Lopez MD Primary Care Provider Gregg Lopez MD Unavailable [phone] Serena Huertas RN Unavailable [phone] Gregg Lopez MD Unavailable [phone] Neelima Rush LPN Unavailable Encounter Details Date Type Department Care Team (Late st Contact Info) Description 11/09/2022 Abstract [facility] [address] [facility] 110 [place] [address] Gregg Lopez MD [address] [facility] 110 [place], [place] [address] Social History Tobacco Use Types Packs/Day Years [...] [address] [place] [address] Gregg Lopez MD [address] [place] [address] 02/16/2025 10:15 AM EDT Office Visit [facility] [place] [facility] [address] [place] [address] Gregg Lopez MD [address] [place] [address] 03/09/2025 10:50 AM EDT Office Visit [facility] [place] [facility] [address] [place] [address] Ivette Michelle, PALLIATIVE CARE NURSE PRACTITIONER-BULB ASSEMBLER [address] [place] [address] 10/09/2025 8:15 AM EDT Office Visit [facility] [address] [place] [address] Eben Ortiz, DO [address] [place], [place] [address] documented as of this encounter Visit Diagnoses Not on filedocumented in this encounter Care Teams Institutional Nutrition Consultant Relationship Specialty Start Date End Date Gregg Lopez MD [address] [place] [address] PCP - ACO Reach 10/05/22 06/19/24 Gregg Lopez MD [address] [place] [address] PCP - General Internal Medicine 11/08/22 Gregg Lopez MD [address] [place] [address] PCP - Devoted 05/14/24 Gregg Lopez MD [address] [place] [address] [place] [address] PCP - ACO Reach 06/27/24 08/14/24 Serena Huertas, DAVID [address] [place] [address] Clinical [facility] Family [facility] 06/20/24 08/01/24 Neelima Rush LPN [address] [place] [address] 08/01/24 documented as of this encounter
--- OUTSIDE RECORDS SUMMARY | 2024-12-12 09:55 | XMS_ITS | Encounter Summary ---
Author Organization [facility] Address [address] [place] [address] Care Team Providers Care Ostomy Nurse Name Role Phone Gregg Lopez MD Unavailable [phone] Gregg Lopez MD Primary Care Provider Gregg Lopez MD Unavailable [phone] Serena Huertas RN Unavailable Gregg Lopez MD Unavailable [phone] Neelima Rush LPN Unavailable Encounter Details Date Type Department Care Team ([facility] Contact Info) Description 03/06/2023 Abstract [facility] 112 [facility] 110 [place] [address] Gregg Lopez MD 112 [facility] 110 [place], [place] [address] Social History Tobacco Use Types Packs/Day Years Used Date Smoking Tobacco: Never Smokeless Tobacco: Never Alcohol Use Standard Drinks/Week Comments Never 0 (1 standard drink = 0.6 oz pur e alcohol) caffeine 1-2 cups/day; coffee Sex and Gender Information Value Date Recorded Sex Assigned at Not on file Legal Sex Male 6:36 PM EDT Gender Identity Not on file Sexual Orientation Not on file documented as of this encounter Plan of Treatment Upcoming Encounters Date Type Department Care Team (Late Contact Info) Description 12/17/2024 10:30 AM EDT Office Visit [facility] [facility] [address] [place] [address] Gregg Lopez MD [address] [place] [address] 02/16/2025 10:15 AM EDT Office Visit [facility] [facility] [address] [place] [address] Gregg Lopez MD [address] [place] [address] 03/09/2025 10:50 AM EDT Office Visit [facility] [place] [facility] [address] [place] [address] Ivette Michelle, WATER MAIN INSPECTOR-REAL ESTATE INVESTOR [address] [place] [address] 10/09/2025 8:15 AM EDT Office Visit [facility] [address] [place] [phone] Eben Ortiz DO [address] [place] [address] documented as of this encounter Visit Diagnoses Not on filedocumented in this encounter Care Teams Ostomy Nurse Relationship Specialty Start Date End Date Gregg Lopez MD [address] [place] [address] PCP - ACO Reach 10/05/22 06/19/24 Gregg Lopez MD [address] [place] [address] PCP - General Internal Medicine 11/08/22 Gregg Lopez MD [address] [facility] 110 [place] [address] PCP - Devoted 05/14/24 Gregg Lopez MD [address] [facility] 110 [place] [address] PCP - ACO Reach 06/27/24 08/14/24 Serena Huertas, DAVID [address] [place] [address] Clinical Advocate Family Medicine 06/20/24 08/01/24 Neelima Rush LPN [address] [facility] [place] [address] 08/01/24 documented as of this encounter
--- OUTSIDE RECORDS SUMMARY | 2024-12-12 09:55 | XMS_ITS | Patient Health Record ---
Author Organization [facility] Address [address] [address] Care Team Providers Care Gear Hobber Operator Name Role Phone Gregg Lopez Primary Care Provider UnavailWilmar Mullins Unavailable [phone] ALLERGIES Allergen (clinical drug ingredient) Drug/Non Drug Allergy documented on EMR Reaction Allergy Type Onset Date Status atorvastatin Lipitor Unknown Drug Allergy Acti ve fenofibrate Tricor Unknown Drug Allergy Activ e REASON FOR REFERRAL No Information MEDICATIONS Medication SIG (Take, Route, Frequency, Duration) Notes Start Date End Date Status CoQ10 200 MG 1 capsule with a rio l Orally Once a day for 30 day(s) Active Xarelto 20 MG 1 tablet with food Orally Once a day Active Aspirin 81 MG 1 tablet Orally Once a Day Active Omeprazole 40 MG 1 capsule 30 minutes before morning meal Orally Once a day Active Finasteride 5 MG 1 tablet Orally Once a day for 30 day(s) Active Doxycycline Hyclate 100 MG 1 capsule Ora lly Once a day for 10 day(s) Active Ipratropium Derby 0.06 % 2 sprays in e ach nostril Nasally Three times a day for 4 day(s) Active Flax Seed Oil 1300 MG 1 capsule Orally T wice a day Active Levothyroxine Sodium 100 MCG 1 tablet on an empty stomach in the morning Orally Once a day for 30 day(s) Active Lisinopril 10 MG 1 tablet Orally Once a day Active Lipitor 80 MG 1 tablet Orally Once a day Active Allopurinol 300 MG 0.5 tablet Orally On ce a day Active Nitroglycerin 0.4 MG 1 [...] drinks (0 point) Points 1 Interpretation Negative PROBLEMS Problem Type ICD Code Onset Dates Problem Status W/U Status Risk SNOMED Code Notes Problem Hypertensive 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 4 chronic kidney disease, or unspecified chronic kidney disease (I12.9) Active confirmed Chronic kidn ey disease stage 3 due to hypertension (152350928850128 ) Problem Chronic kidney disease, stage 3a (N18.31) Active confirmed Chronic kidney disease stage 3a ([id number]) VITAL SIGNS Heart Rate 72 /min 09/29/2024 Blood pressure diastolic 56 mm Hg 09/29/2024 Height 70 in 09/29/2024 Blood pressure systolic 132 mm Hg 09/29/2024 Weight 179 lbs 09/29/2024 BMI 25.68 kg/m2 09/29/2024 Encounters Encounter Location Date Provider Diagnosis [facility] [address] [address] 06/30/2024 Wilmar Ramiro Chronic kidney dis ease, stage 3a N18.31 and Hypertensive 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 4 chronic kidney disease, or unspecified chronic kidney disease I12.9 [facility] [address] [address] 09/29/2024 Wilmar Ramiro Chronic kidney dis ease, stage 3a N18.31 and Hypertensive 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 4 chronic kidney disease, or unspecified chronic kidney disease I12.9 ASSESSMENTS Encounter Date Diagnosis Assessment Notes Treatment Notes Treatment Clinical Notes Section Notes 06/30/2024 Hypertensive 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 4 chronic kidney disease, or unspecified chronic kidney disease (ICD-10 - I12.9) WATER VESSEL CAPTAIN/EGFR/PROTIEN 1.3/53/0.0 NA 139 K 5.2 C02 23 [...] ANY CHANGE IN CONDITION OR MEDICATIONS 06/30/2024 Chronic kidney disease, stage 3a (ICD-10 - N18.31) DISCUSSED K WITH LOW K DIET AND NO TO VALENTIN ORO FOR BLOOD DRAW KEEP LISINOPRIL AND SEE PATIENT IN 3 MO WATER VESSEL CAPTAIN/EGFR/PROTIEN 1.3/53/0.0 NA 139 K 5.2 C02 23 [...] WITH ANY CHANGE IN CONDITION OR MEDICATIONS 09/29/2024 Hypertensive 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 4 chronic kidney disease, or unspecified chronic kidney disease (ICD-10 - I12.9) WATER VESSEL CAPTAIN/EGFR/PROTEIN 1.4/49/1.5 NA 139 K 4.7 C02 23 [...] ANY CHANGE IN CONDITION OR MEDICATION 09/29/2024 Chronic kidney disease, stage 3a (ICD-10 - N18.31) MEDS REVIEWED, NO CHANGE. DISCUSSED KIDNEY PRESERVATION, BY AVOIDING NEPHROTOXIC EXPOSURE, AVOID INFECTION, FALLS & PREVENTION OF CARDIOVASCLAR DISEASE, MODERATE MEALS AND REGULAR PA RECOMENDED & DISCUSSED. FOLLOW UP IN 6 MO WATER VESSEL CAPTAIN/EGFR/PROTEIN 1.4/49/1.5 NA 139 K 4.7 C02 23 [...] IN CONDITION OR MEDICATION PLAN OF TREATMENT Future Test Test Name Order Date Renal Ultrasound 06/04/2019 PTH, Intact 04/01/2025 Renal Function Panel 04/01/2025 CBC 04/01/2025 VITAMIN D,25-[place],LCMSMS 04/01/2025 TSH 04/01/2025 Spot urine Albumin to Creatinine Ratio 1 06/01/2024 Next Appt Details Provider Name:Wilmar Rubio, 1 06/17/2024 01:00:00 PM, [address], [address], [place], [address], Insurance Providers Payer Name Payer Address Payer Phone Subscriber Number Group Number Insured Name Patient Relationship to Insured Coverage Start Date Coverage End Date [facility] [address] [place] [id number] Aaron Blanton Self - patient is the insured [place] [address] [id number] Aaron Blanton Self - patient is the insured MEDICAL (GENERAL) HISTORY Medical History History ICD Code coronary artery disease parkinsons disease benign prostatic hyperplasia (BPH) hypertension morbid obesity Dyslipidemia hypercholesterolemia supraventricular tachycardia CKD Stage III chronic glomerulonephritis HTN, Benign CKD 1-4 Proteinuria, Micro/Macroalbuminuria Surgical History Surgery Date(Month/Year) cardiac pacemeker stents (cardiac) hand surgery Hospitalization History Reason Date(Month/Year) pacemaker check 11/02 ablation of supraventricular tachycardia 01/27/2008 low bp dizzy 05/11/19 HEART OUT OF RHYTHM 07/03
--- OUTSIDE RECORDS SUMMARY | 2024-12-12 09:55 | XMS_ITS | Encounter Summary ---
Author Organization [facility] Address [address] [place] [address] Care Team Providers Care Business Objects Name Role Phone Gregg Lopez MD Unavailable [phone] Gregg Lopez MD Primary Care Provider [phone] Gregg Lopez MD Unavailable [phone] Serena Huertas RN Unavailable Gregg Lopez MD Unavailable [phone] Neelima Rush LPN Unavailable Encounter Details Date Type Department Care Team (Late st Contact Info) Description 11/24/2022 Abstract [facility] [facility] [address] [place] [address] Kevin Louise, PT [address] [place] [address] Social History Tobacco Use Types Packs/Day Years [...] [address] [place] [address] Gregg Lopez MD [address] [place] [address] 02/16/2025 10:15 AM EDT Office Visit [facility] [place] [facility] [address] [place] [address] Gregg Lopez MD [address] [place] [address] 03/09/2025 10:50 AM EDT Office Visit [facility] [place] [facility] [address] [place] [address] Ivette Michelle, CAUSTIC MIXER-MOLDER [address] [place] [address] 10/09/2025 8:15 AM EDT Office Visit [facility] [address] [place] [address] Eben Ortiz, [address] [place] [address] documented as of this encounter Visit Diagnoses Not on filedocumented in this encounter Care Teams Business Objects Relationship Specialty Start Date End Date Gregg Lopez MD [address] [place] [address] PCP - ACO Reach 10/05/22 06/19/24 Gregg Lopez MD [address] [place] [address] PCP - General Internal Medicine 11/08/22 Gregg Lopez MD [address] [place] [address] PCP - Devoted 05/14/24 Gregg Lopez MD [address] [facility] [place] [address] PCP - ACO Reach 06/27/24 08/14/24 Serena Huertas, DAVID [address] [place], [place] [address] Clinical Advocate Family Medicine 06/20/24 08/01/24 Neelima Rush LPN [address] [address] [place] [address] 08/01/24 documented as of this encounter
--- OUTSIDE RECORDS SUMMARY | 2024-12-12 09:55 | XMS_ITS | Encounter Summary ---
Author Organization [facility] Address [address] [place] [address] Care Team Providers Care Division Operations Specialist Name Role Phone Gregg Lopez MD Unavailable [phone] Gregg Lopez MD Primary Care Provider [phone] Gregg Lopez MD Unavailable [phone] Serena Huertas RN Unavailable Gregg Lopez MD Unavailable [phone] Neelima Rush LPN Unavailable Encounter Details Date Type Department Care Team (Late st Contact Info) Description 12/28/2022 Abstract [facility] [place] [address] Cata Rudolph, PT [address] [place] [address] Social History Tobacco Use Types Packs/Day Years [...] [address] [place] [address] Gregg Lopez MD [address] [place] [address] 02/16/2025 10:15 AM EDT Office Visit [facility] [place] [facility] [address] [place] [address] Gregg Lopez MD [address] [place] [address] 03/09/2025 10:50 AM EDT Office Visit [facility] [place] [facility] [address] [place] [address] Ivette Michelle, HOSPICE ENTRANCE ATTENDANT-WELDER/FABRICATOR [address] [place] [address] 10/09/2025 8:15 AM EDT Office Visit [facility] [address] [place] [address] Eben Ortiz DO [address] [place] [address] documented as of this encounter Visit Diagnoses Not on filedocumented in this encounter Care Teams Division Operations Specialist Relationship Specialty Start Date End Date Gregg Lopez MD [address] [place] [address] PCP - ACO Reach 10/05/22 06/19/24 Gregg Lopez MD [address] [place] [address] PCP - General Internal Medicine 11/08/22 Gregg Lopez MD [address] [place] [address] PCP - Devoted 05/14/24 Gregg Lopez MD [address] [place] [address] [place] [address] PCP - ACO Reach 06/27/24 08/14/24 Serena Huertas, DAVID [address] [place] [address] Clinical Advocate Family Medicine 06/20/24 08/01/24 Neelima Rush LPN [address] [place] [address] 08/01/24 documented as of this encounter
--- OUTSIDE RECORDS SUMMARY | 2024-12-12 09:55 | XMS_ITS | Encounter Summary ---
Author Organization [facility] Address [address] [place] [address] Care Team Providers Care Apple Picker Name Role Phone Gregg Lopez MD Unavailable [phone] Gregg Lopez MD Primary Care Provider [phone] Gregg Lopez MD Unavailable [phone] Serena Huertas RN Unavailable [phone] Gregg Lopez MD Unavailable [phone] Neelima Rush LPN Unavailable Encounter Details Date Type Department Care Team (Late st Contact Info) Description 11/09/2022 [facility] [address] [facility] 110 [place] [address] Gregg Lopez MD [address] [facility] 110 [place], [place] [address] Social History Tobacco Use Types Packs/Day Years [...] [address] [place] [address] Gregg Lopez MD [address] [place] [address] 02/16/2025 10:15 AM EDT Office Visit [facility] [place] [facility] [address] [place] [address] Gregg Lopez MD [address] [place] [address] 03/09/2025 10:50 AM EDT Office Visit [facility] [place] [facility] [address] [place] [address] Ivette Michelle, ERP TECHNICAL LEAD-MANAGER APPLICATION [address] [place] [address] 10/09/2025 8:15 AM EDT Office Visit [facility] [address] [place] [address] Eben Ortiz, DO [address] [place], [place] [address] documented as of this encounter Visit Diagnoses Not on filedocumented in this encounter Care Teams Apple Picker Relationship Specialty Start Date End Date Gregg Lopez MD [address] [place] [address] PCP - ACO Reach 10/05/22 06/19/24 Gregg Lopez MD [address] [place] [address] PCP - General Internal Medicine 11/08/22 Gregg Lopez MD [address] [place] [address] PCP - Devoted 05/14/24 Gregg Lopez MD [address] [place] [address] [place] [address] PCP - ACO Reach 06/27/24 08/14/24 Serena Huertas, DAV[place] [address] [place] [address] Clinical Advocate Family Medicine 06/20/24 08/01/24 Neelima Rush LPN [address] [place] [address] 08/01/24 documented as of this encounter
== END 2024-12-12 09:43 | disposition home or self-care (01) ==
LOC: RAD 09:51
PROVIDERS: PCP Internal Medicine; Visit Provider Internal Medicine
DX: R63.4 Abnormal weight loss (principal); R05.3 Chronic cough
CPT/HCPCS: 71046